=== PATIENT | female | born 1965 | race Caucasian/White ===

== ENCOUNTER → 2016-11-13 | Outpatient (CLI) | payer BC ==
--- NOTE | 2016-11-13 17:38 | US ---
EXAMINATION TYPE: US venous doppler duplex LE LT DATE OF EXAM: 11/13/2016 5:15 PM COMPARISON: NONE CLINICAL HISTORY: R60.0 Localized edema. Edema left foot, discoloration left toes SIDE PERFORMED: Left VESSELS IMAGED: External Iliac Vein (EIV) Common Femoral Vein Deep Femoral Vein Greater Saphenous Vein * Femoral Vein Popliteal Vein Small Saphenous Vein * Proximal Calf Veins (* superficial vessels) Left Leg: No evidence of DVT. Lymph nodes left groin measuring 1.5 x 0.8 x 1.7cm and 1.9 x 0.6 x 1.3 cm IMPRESSION: No evidence for DVT left lower extremity.
== END | disposition home or self-care (01) ==
LOC: RADUSMAIN 16:46
PROVIDERS: ATTEND Family Medicine
DX: R60.0 Localized edema (principal)

== ENCOUNTER → 2016-11-14 | Outpatient (CLI) | payer BC ==
--- NOTE | 2016-11-14 14:51 | P.ARTDOP ---
Arterial Doppler LOWER EXTREMITY ARTERIAL DOPPLER: DATE OF SERVICE: 11/14/2016 Reason for study: Color changes in the left foot and swelling. Doppler waveforms: Doppler waveforms are multiphasic throughout on the right down to the dorsalis pedis. On the left they are multiphasic to the dorsalis pedis but the dorsalis pedis is a bit blunted. Pulse volume recording: Digital plethysmography on the right is essentially normal. On the left the first and fifth toes are very minimally blunted. The second through the fourth toes however are fairly flat line. Pressure gradients: None essentially on the right. There is a mild gradient above the knee on the left. There is a mild gradient on the lower leg on the left. Ankle-brachial indices: 0.99 on the right and 0.69 on the left. Toe pressures: 81 on the right, not recorded on the left Impression: Essentially normal study on the right.. There is mild left SFA disease. There is probably some mild infrapopliteal disease. The flat line of the second through fourth digits on the left is of concern. I am told that the patient had an ice pack on her foot. This could possibly be related to vasospastic phenomenon. Embolic phenomenon is a consideration but is generally very painful. Trauma is a consideration. Clinical correlation recommended.
== END | disposition home or self-care (01) ==
LOC: RADUSWWP 13:34
PROVIDERS: ATTEND Family Medicine
DX: R60.0 Localized edema (principal)
CPT/HCPCS: 93923

== ENCOUNTER 2016-11-15 07:44 | Inpatient (IN) | payer BC ==
--- NOTE | 2016-11-15 08:39 | ED ---
Extremity Problem HPI - General Source: patient, RN notes reviewed Mode of arrival: ambulatory Limitations: no limitations <SanketTeresa dinero - Last Filed: 11/15/16 11:56> <Ever Alvares - Last Filed: 11/15/16 12:42> - General Chief complaint: Extremity Problem,Nontraumatic Stated complaint: Foot pain Time Seen by Provider: 11/15/16 08:10 - History of Present Illness Initial comments: Patient is a 51-year-old female presents to the emergency room for evaluation of left foot pain, discoloration and swelling. Patient states last month she was wearing boots that were little too large for her. Patient states that her toes were rubbing against her boot which started to irritate her toes. Patient states around October 26 she noticed pain and redness over her left pinky toe radiating up her foot. Patient states she went and saw her primary care provider and she is placed on Keflex. Patient states the redness and pain began to subside and came back a few days later even worse. Patient states all of her toes turn purple and she has redness on the top of her foot along with swelling. Patient states because of the swelling her toes feel numb. Patient states she was started on Augmentin yesterday. Patient states she had a venous Doppler study 2 days ago which was negative for DVT. Patient states she had an arterial Doppler done yesterday and got a phone call today saying that she has no blood flow from her second to fourth digits. Patient states she had a phone call from her primary care provider office and was advised to come to the emergency room since she cannot get an appointment with the vascular surgeon until 2 weeks from now. Patient does admit that she's been placing ice over her foot during most of the day to help get the swelling down. Patient states she does notice that her toes feel more numb when the ice on her foot. Patient states when she puts her foot in a warm bath she noticed that she has more feeling in her toes. Patient states that she had a blister on the outside of her great toe that she popped a few days ago. Patient states it has been healing and looks better than it has when she originally popped it. Patient does state she has a history of diabetes. Patient also admits to smoking daily. Patient denies fevers, chills, weakness, headache, dizziness, chest pain , shortness of breath. Patient denies any significant pain in her foot. (Teresa Coles) - Related Data Home Medications Medication Instructions Recorded Confirmed Amoxicillin/Potassium Clav 1 tab PO Q12HR 11/15/16 11/15/16 [Augmentin 875-125 Tablet] Cinnamon Bark [Cinnamon] 500 mg PO DAILY 11/15/16 11/15/16 Cyanocobalamin (Vitamin B-12) 1,000 mcg PO DAILY 11/15/16 11/15/16 [Vitamin B-12] Empagliflozin/Linagliptin 1 tab PO DAILY 11/15/16 11/15/16 [Glyxambi 25 mg-5 mg Tablet] Fish Oil/Dha/Epa [Fish Oil 1,200 1 cap PO DAILY 11/15/16 11/15/16 mg Fish Oil] Ibuprofen [Motrin] 800 mg PO Q8HR PRN 11/15/16 11/15/16 Pyridoxine [Vitamin B-6] 50 mg PO DAILY 11/15/16 11/15/16 Turmeric Root Extract [Turmeric] 500 mg PO DAILY 11/15/16 11/15/16 Allergies Allergy/AdvReac Type Severity Reaction Status Date / Time codeine AdvReac Nausea & Verified 11/15/16 08:55 Vomiting Review of Systems ROS Other: All systems not noted in ROS Statement are negative. <Teresa Coles - Last Filed: 11/15/16 11:56> ROS Other: All systems not noted in ROS Statement are negative. <Ever Alvares - Last Filed: 11/15/16 12:42> ROS Statement: Those systems with pertinent positive or pertinent negative responses have been documented in the HPI. Past Medical History Past Medical History: Diabetes Mellitus History of Any Multi-Drug Resistant Organisms: None Reported Past Surgical History: No Surgical Hx Reported Past Psychological History: Depression Smoking Status: Current every day smoker Past Alcohol Use History: None Reported Past Drug Use History: None Reported <Teresa Coles - Last Filed: 11/15/16 11:56> General Exam Limitations: no limitations General appearance: alert, in no apparent distress Head exam: Present: atraumatic, normocephalic, normal inspection ENT exam: Present: normal exam Neck exam: Present: normal inspection Respiratory exam: Present: normal lung sounds bilaterally. Absent: respiratory distress Cardiovascular Exam: Present: regular rate, normal rhythm, normal heart sounds Left Foot/Toe exam: Present: full ROM, swelling (Dorsal portion of the foot), erythema (Dorsal portion of the foot). Absent: normal inspection (Blue discoloration of first to fifth digits.), tenderness Neurovascular tendon exam: Absent: pulse deficit (Dorsal pedal and posterior tibial pulses found on Doppler) Back exam: Present: normal inspection Neurological exam: Present: alert, oriented X3 Psychiatric exam: Present: normal affect, normal mood Skin exam: Present: warm, dry <Teresa Coles - Last Filed: 11/15/16 11:56> General appearance: alert, in no apparent distress Head exam: Present: atraumatic, normocephalic, normal inspection Eye exam: Present: normal appearance, PERRL, EOMI. Absent: scleral icterus, conjunctival injection, periorbital swelling ENT exam: Present: normal exam, mucous membranes moist Neck exam: Present: normal inspection. Absent: tenderness, meningismus, lymphadenopathy Respiratory exam: Present: normal lung sounds bilaterally. Absent: respiratory distress, wheezes, rales, rhonchi, stridor Cardiovascular Exam: Present: regular rate, normal rhythm, normal heart sounds. Absent: systolic murmur, diastolic murmur, rubs, gallop, clicks GI/Abdominal exam: Present: soft, normal bowel sounds. Absent: distended, tenderness, guarding, rebound, rigid Extremities exam: Present: normal inspection, full ROM, normal capillary refill , other (Decreased pulse left lower extremity, purple distal tips of toes one through 5, also the left great toe). Absent: tenderness, pedal edema, joint swelling, calf tenderness Back exam: Present: normal inspection Neurological exam: Present: alert, oriented X3, CN II-XII intact Psychiatric exam: Present: normal affect, normal mood Skin exam: Present: warm, dry, intact, normal color. Absent: rash <Ever Alvares - Last Filed: 11/15/16 12:42> - General Exam Comments Initial Comments: Sitting in exam room in no acute distress. (Teresa Coles) Course <Teresa Coles - Last Filed: 11/15/16 11:56> <Ever Alvares - Last Filed: 11/15/16 12:42> Vital Signs 11/15/16 11/15/16 07:48 12:19 Temperature 98.2 F Pulse Rate 104 H 105 H Respiratory 18 16 Rate Blood Pressure 146/70 139/69 O2 Sat by Pulse 98 99 Oximetry - Reevaluation(s) Reevaluation #1: 11/15/16 12:41 Patient pain is much improved actually at this time. No signs of infection ( Ever Alvares) Medical Decision Making - Lab Data Result diagrams: 11/15/16 09:11 11/15/16 09:11 <Teresa Coles - Last Filed: 11/15/16 11:56> - Lab Data Result diagrams: 11/15/16 09:11 11/15/16 09:11 <Ever Alvares - Last Filed: 11/15/16 12:42> - Medical Decision Making 51 female here with left lower extremity arterial occlusion acute, likely embolic, patient will be admitted pending CT of lower extremity to vascular surgery. Patient started on heparin (Ever Alvares) - Lab Data Lab Results 11/15/16 11/15/16 11/15/16 Range/Units 09:11 09:11 09:11 WBC 16.4 H (3.8-10.6) k/uL RBC 5.94 H (3.80-5.40) m/uL Hgb 16.1 H (11.4-16.0) gm/dL Hct 47.8 H (34.0-46.0) % MCV 80.5 (80.0-100.0) fL MCH 27.2 (25.0-35.0) pg MCHC 33.8 (31.0-37.0) g/dL RDW 13.9 (11.5-15.5) % Plt Count 351 (150-450) k/uL Neutrophils % 83 % Lymphocytes % 11 % Monocytes % 4 % Eosinophils % 1 % Basophils % 0 % Neutrophils # 13.7 H (1.3-7.7) k/uL Lymphocytes # 1.7 (1.0-4.8) k/uL Monocytes # 0.7 (0-1.0) k/uL Eosinophils # 0.1 (0-0.7) k/uL Basophils # 0.0 (0-0.2) k/uL PT (9.0-12.0) sec INR (<1.1) APTT (22.0-30.0) sec Sodium 142 (137-145) mmol/L Potassium 5.1 (3.5-5.1) mmol/L Chloride 105 (98-107) mmol/L Carbon Dioxide 21 L (22-30) mmol/L Anion Gap 16 mmol/L BUN 17 (7-17) mg/dL Creatinine 0.52 (0.52-1.04) mg/dL Est GFR (MDRD) Af Amer >60 (>60 ml/min/1.73 sqM) Est GFR (MDRD) Non-Af >60 (>60 ml/min/1.73 sqM) Glucose 156 H (74-99) mg/dL Plasma Lactic Acid Domo 1.1 (0.7-2.0) mmol/L Calcium 9.8 (8.4-10.2) mg/dL Total Bilirubin 1.1 (0.2-1.3) mg/dL AST 38 H (14-36) U/L ALT 36 (9-52) U/L Alkaline Phosphatase 161 H (38-126) U/L Total Protein 8.1 (6.3-8.2) g/dL Albumin 4.3 (3.5-5.0) g/dL 11/15/16 Range/Units 09:11 WBC (3.8-10.6) k/uL RBC (3.80-5.40) m/uL Hgb (11.4-16.0) gm/dL Hct (34.0-46.0) % MCV (80.0-100.0) fL MCH (25.0-35.0) pg MCHC (31.0-37.0) g/dL RDW (11.5-15.5) % Plt Count (150-450) k/uL Neutrophils % % Lymphocytes % % Monocytes % % Eosinophils % % Basophils % % Neutrophils # (1.3-7.7) k/uL Lymphocytes # (1.0-4.8) k/uL Monocytes # (0-1.0) k/uL Eosinophils # (0-0.7) k/uL Basophils # (0-0.2) k/uL PT 10.2 (9.0-12.0) sec INR 1.0 (<1.1) APTT 23.1 (22.0-30.0) sec Sodium (137-145) mmol/L Potassium (3.5-5.1) mmol/L Chloride (98-107) mmol/L Carbon Dioxide (22-30) mmol/L Anion Gap mmol/L BUN (7-17) mg/dL Creatinine (0.52-1.04) mg/dL Est GFR (MDRD) Af Amer (>60 ml/min/1.73 sqM) Est GFR (MDRD) Non-Af (>60 ml/min/1.73 sqM) Glucose (74-99) mg/dL Plasma Lactic Acid Domo (0.7-2.0) mmol/L Calcium (8.4-10.2) mg/dL Total Bilirubin (0.2-1.3) mg/dL AST (14-36) U/L ALT (9-52) U/L Alkaline Phosphatase (38-126) U/L Total Protein (6.3-8.2) g/dL Albumin (3.5-5.0) g/dL Critical Care Time Critical Care Time: Yes Total Critical Care Time: 31 <Ever Alvares - Last Filed: 11/15/16 12:42> Disposition Decision Date: 11/15/16 <Teresa Coles - Last Filed: 11/15/16 11:56> <Ever Alvares - Last Filed: 11/15/16 12:42> Clinical Impression: Arterial occlusion, lower extremity Disposition: ADMITTED IP TO THIS [facility] Condition: Stable Referrals: Ting Borjas MD [Primary Care Provider] - 1-2 days
[2016-11-15 09:36] LABS: Basophils % (A) 0 %; CH 27.9; CHCM 34.8; Eosinophils # (A) 0.1 k/uL (0-0.7); Eosinophils % (A) 1 %; HCT 47.8 % (34.0-46.0); HDW 2.64; HGB 16.1 gm/dL (11.4-16.0); Luc # (Auto) 0.13; Luc % (Auto) 1; Lymphocytes # (A) 1.7 k/uL (1.0-4.8); Lymphocytes % (A) 11 %; MCH 27.2 pg (25.0-35.0); MCHC 33.8 g/dL (31.0-37.0); MCV 80.5 fL (80.0-100.0); Mean Platelet Volume 7.5; Monocytes # (A) 0.7 k/uL (0-1.0); Monocytes % (A) 4 %; Neutrophils # (A) 13.7 k/uL (1.3-7.7); Neutrophils % (A) 83 %; RBC 5.94 m/uL (3.80-5.40); RDW 13.9 % (11.5-15.5); WBC 16.4 k/uL (3.8-10.6); WBC (Perox) 17.64
[2016-11-15 09:37] LABS: Prothrombin Time 10.2 sec (9.0-12.0)
[2016-11-15 09:47] LABS: Anion Gap 16 mmol/L; Calcium 9.8 mg/dL (8.4-10.2); Carbon Dioxide 21 mmol/L (22-30); Chloride 105 mmol/L (98-107); Glucose 156 mg/dL (74-99); Non-African American GFR(MDRD) >60 (>60 ml/min/1.73 sqM); Sodium 142 mmol/L (137-145); Total Bilirubin 1.1 mg/dL (0.2-1.3)
[2016-11-15 09:49] LABS: Potassium 5.1 mmol/L (3.5-5.1); Total Protein 8.1 g/dL (6.3-8.2)
[2016-11-15 09:50] LABS: ALT 36 U/L (9-52); AST 38 U/L (14-36); Alkaline Phosphatase 161 U/L (38-126); Blood Urea Nitrogen 17 mg/dL (7-17)
[2016-11-15] MEDS ORDERED: HEPARIN SODIUM,PORCINE 5,000 UNIT/ML 1 ML VIAL IV ONE (09:56)
[2016-11-15] MEDS: HEPARIN SODIUM,PORCINE/D5W PMX 25,000 UNIT in DEXTROSE/WATER 1 500ML.BAG IV SCH (10:12)
[2016-11-15 10:49] LABS: Partial Thromboplastin Time 23.1 sec (22.0-30.0)
[2016-11-15] MEDS ORDERED: IBUPROFEN 800 MG TAB PO STA (11:50)
[2016-11-15] MEDS ORDERED: IBUPROFEN 800 MG TAB PO PRN (11:52)
[2016-11-15] MEDS ORDERED: NALOXONE 0.4 MG/ML 1 ML VIAL IV PRN (11:52)
[2016-11-15] MEDS ORDERED: SODIUM CHLORIDE 0.9% 1,000 ML IV SCH (12:00)
[2016-11-15] MEDS ORDERED: RX INFO: IV CONTRAST WAS GIVEN 1 EACH MISC MISCELLANE PRN (12:29)
--- NOTE | 2016-11-15 13:15 | P.CON ---
Consult Note - . Consult date: 11/15/16 Assessment/Plan:: impression; 1. moderate left femoropopliteal arterial occlusive disease with embolic phenomenon to left forefoot with threatened toes 2. diabetes mellitus poorly controlled 3. nicotine dependence plan; 1. agree with heparin drip for now 2. CTA of aorta with runoff to delineate inflow to left foot; patient will require intervention for tissue salvage 3. further recommendations after CTA aorta 4. cardiac risk factor stratification 51 y/o woman in usual state of health until 11/10/2016 when she noticed that her toes became blue and she had pain in her foot when walking. She noticed that in spite of home remedies her foot did not improve and it became increasingly painful. She developed a blister on her left great toe that ruptured. NO history of fevers, chills, drainage from foot. She denies a history of cardiac arrythmias or thromboembolic events in the past. No history of hypercoagulable state. She has a 10 year history of diabetes mellitus that is poorly controlled. Her HgA1C runs around 9. She smokes at least 3/4 to 1 ppd and has done so for the past 30 years. She has a family history of collagen vascular disease; her grandmother had lupus and her mother has symptoms suggestive of scleroderma. Underwent venous duplex and arterial studies as an outpatient; no flow noted in left 2nd, third, and 4th toes; here for further evaluation and management. CMHx; DM, nicotine dependence, PSHx; D&C Habits; 30 pack year history of smoking currently smoking 3/4 to 1ppd, no EtOH or drugs; works as a caregiver FHx; as noted above PE: 139/69 AR = 112 O2 sat = 99% HEENT; no bruits, no JVD, trachea midline, no thyromegaly or lymphadenopathy Lungs; clear bilaterally Heart; RRR, normal S1 and S2 ABD; soft, non-tender, no palpable pulsatile organomegaly or bruits EXTR; femoral pulses are palpable bilaterally; right popliteal, dorsalis pedis, and posterior tibial pulses are palpable; left popliteal and pedal pulses are not palpable; left dorsalis pedis and posterior tibial pulses are dopplerable; cyanosis of left forefoot involving great, second, third, fourth, fifth toes; capillary refill is 5 seconds; there is erythema of the dorsum of the left forefoot and edema of the left forefoot to the level of the plantar arch Arterial doppler studies from 11/14/2016 demonstrates normal arterial inflow to the right leg. The left leg demonstrates moderate femoropopliteal arterial occlusive disease with an CHAPITO of 0.69. Biphasic waveforms are noted in the superficial femoral, popliteal and tibial vessels. PPG demonstrate normal flow to the toes of the right foot; the left foot demonstrates pulsatile flow to the great toe and fifth toe with flat-line flow to the second, third and fourth toes. impression/plan as noted above following with you
--- NOTE | 2016-11-15 14:11 | CT ---
EXAMINATION TYPE: CT angio abd aorta wo/w con DATE OF EXAM: 11/15/2016 1:21 PM COMPARISON: NONE HISTORY: 51-year-old female with left lower limb redness, discoloring, and swelling. Ischemic left f orefoot from embolus. Left SFA abnormal on exam. No popliteal or pedal pulse. TECHNIQUE: Contiguous axial scanning of the abdomen and pelvis with bilateral lower extremity runoff performed with IV Contrast, patient injected with 125 mL of Omnipaque 350. Coronal/sagittal MIP recon structions performed. 3-D reconstructions generated on a dedicated independent workstation. CT DLP: 683.0 mGycm Automated exposure control for dose reduction was used. FINDINGS: The heart is normal size without pericardial effusion. Strandy atelectasis at the lower lungs without pleural effusion. Liver is enlarged measuring 21 cm craniocaudal with diffuse low-attenuation. No biliary ductal dilata tion. Gallbladder with phrygian cap, adrenal glands, and kidneys appear within normal limits. There is mild splenomegaly at 14.1 cm. Pancreas appears within normal limits. There is no evidence for AAA. Visceral artery origins are patent. There are mild apical scarring calc ifications of the distal abdominal aorta. Moderate atherosclerotic plaque and calcification causes se gmental mild narrowing of the left common iliac artery. The vessel is small measuring only 6 mm. On the right, there is mild atherosclerotic change involving the common femoral artery. Otherwise, th e right lower extremity arterial vasculature is patent with satisfactory runoff. On the left, the common femoral arteries patent. The superficial femoral artery demonstrates a severe stenosis at the level of the abductor hiatus. Th e normal SFA is small at 4 mm. There is an eccentric calcification and prominent soft plaque at the s ite of severe stenosis, axial image 234 and coronal image 28. There is otherwise three-vessel runoff to the foot. Diffuse soft tissue swelling is noted of the left midfoot and forefoot and some left femoral canal an d left external iliac chain lymph nodes which are asymmetrically larger measuring up to 9 mm probably reactive. No dilated small bowel, free fluid, or free air. No mesenteric or retroperitoneal lymphadenopathy. Sc attered moderate stool throughout the colon without pericolonic inflammatory change. Bladder is urine distended. Uterus and ovaries are visualized. No abnormal fluid collection in the pe lvis. Bones: Degenerative changes lower lumbar spine. No osseous destructive process. IMPRESSION: 1. MILD ATHEROSCLEROTIC STENOSIS OF THE LEFT COMMON ILIAC ARTERY. THE [place] VESSEL IS RELATIVELY SMA LL AT 6 MM. 2. SEVERE FOCAL STENOSIS LOWER LEFT SFA AT THE LEVEL OF THE ADDUCTOR HIATUS SECONDARY TO PROMINENT SO FT PLAQUE. THE [place] VESSEL IS SMALL AT 4 MM. 3. HEPATOMEGALY AND HEPATIC STEATOSIS. 4. MILD SPLENOMEGALY (14.1 CM). 5. DIFFUSE SOFT TISSUE SWELLING OF THE LEFT MIDFOOT AND FOREFOOT LIKELY SECONDARY TO THE PATIENT'S AC OUZINKIE ISCHEMIC PRESENTATION. 6. ASYMMETRICALLY LARGER LEFT EXTERNAL ILIAC AND FEMORAL CANAL LYMPH NODES MEASURING UP TO 9 MM LIKEL Y REACTIVE.
[2016-11-15] MEDS ORDERED: MORPHINE SULFATE 4 MG/ML SYRINGE IVP PRN (14:27)
[2016-11-15] MEDS: FAMOTIDINE 20 MG TAB PO SCH (15:08)
[2016-11-15] MEDS ORDERED: ASPIRIN 81 MG CHEW PO STA (15:13)
[2016-11-15] MEDS: ONDANSETRON 4 MG/2 ML VIAL IVP PRN ×2 (16:38→21:46)
[2016-11-15] MEDS: INSULIN LISPRO (humaLOG) 300 UNIT/3 ML VIAL SQ SCH ×2 (16:44→20:56)
[2016-11-15 16:51] LABS: Glucose,Whole Blood 108 mg/dL (75-99)
--- NOTE | 2016-11-15 17:00 | P.PN ---
Progress Note - Text CTA of aorta with runoff reviewed; demonstrates area of 30-40% stenosis of the proximal left common iliac artery just distal to the aortic bifurcation. There is an area of high grade stenosis at the adductor canal with a significant amount of soft thrombus noted at this level. Superficial femoral artery is 4.8mm in maximal diameter. The popliteal artery and trifurcation are patent and there is 2 vessel runoff to the foot via the anterior tibial and posterior tibial arteries. Patient will require open superficial femoral endarterectomy with vein patch secondary to significant amount of soft thrombus noted in the superficial femoral artery. Manipulation without an embolic protection device would incur an increased risk of further embolization. Covered stent placement of an artery this size in this location has an increased risk of thrombosis secondary to the small caliber vessels present. Risks and benefits of the procedure (superficial femoral endarterectomy with patch and related procedures) was discussed with the patient including cardiac and pulmonary complications, infection, bleeding, wound healing complications, loss of toes and foot in spite of all efforts at limb salvage, re-stenosis and need for re-intervention, cardiac and pulmonary complications. Patient understands rationale for the proposed procedure and is willing to have procedure performed. She is scheduled for 11/16/2016.
[2016-11-15] MEDS: HEPARIN SODIUM,PORCINE 5,000 UNIT/ML 1 ML VIAL IV PRN (17:27)
--- NOTE | 2016-11-15 18:10 | XR ---
EXAMINATION TYPE: XR chest 2V DATE OF EXAM: 11/15/2016 5:45 PM COMPARISON: NONE HISTORY: Preop evaluation. TECHNIQUE: Frontal and lateral views of the chest are obtained. FINDINGS: Innumerable nodular foci are seen throughout the entirety of the lungs, likely relating to miliary pulmonary nodules. No focal consolidation, pleural effusion, or pneumothorax is seen. Cardio mediastinal silhouette is within normal limits of size. Osseous structures are intact. IMPRESSION: Innumerable nodular foci throughout the entirety of the lungs, likely representing milia ry pulmonary nodules. Enhanced CT thorax is recommended on a nonemergent basis for further evaluation .
[2016-11-15 19:06] LABS: Appearance,Urine Clear (Clear); Bilirubin,Urine Negative (Negative); Glucose,Urine (UA) 4+ (Negative); Leukocyte Esterase,Urine Negative (Negative); Nitrite,Urine Negative (Negative); Protein,Urine Negative (Negative); Specific Gravity,Urine 1.025 (1.001-1.035); UA Billing (MACRO vs. MICRO) CHEM; Urobilinogen,Urine <2.0 mg/dL (<2.0)
--- NOTE | 2016-11-15 19:35 | HP ---
DATE OF ADMISSION: Patient is a 51-year-old female with a history of extensive smoking history and history of diabetes mellitus, came into the hospital with discoloration of all five toes in the left leg extending up to the metatarsal area with an ulcer on the lateral aspect of the left great toe. Patient was complaining of severe pain in the foot about 6/10, sharp in nature, along with occasional numbness and tingling. Patient was given Keflex for her ulcer and they did arterial Doppler of the lower extremity, which showed significant occlusion of the second and third toes. That discoloration was not present until today morning which has worsened today morning. Vascular Surgery was consulted and already evaluated the patient. The patient did get a CT angio of the left lower limb, which shows some atherosclerotic vascular disease extending from the left iliac artery with significant atherosclerotic vascular disease in the left femoral and common femoral. The patient may have an embolic phenomenon, although patient's dorsalis pedis pulses with Doppler are present and 1+. Patient has significant swelling in the left lower limb. Patient was subsequently admitted for urgent vascular intervention and vascular surgery. Patient is admitted to the stepdown unit. REVIEW OF SYSTEMS: CONSTITUTIONAL: No fever, no malaise, no fatigue. HEENT: No recent visual problems or hearing problems. Denied any sore throat. CARDIOVASCULAR: No chest pain, orthopnea, PND, no palpitations, no syncope. PULMONARY: No shortness of breath, no cough, no hemoptysis. GASTROINTESTINAL: No diarrhea, no nausea, no vomiting, no abdominal pain. Normoactive bowel sounds. NEUROLOGICAL: No headaches, no weakness, no numbness. HEMATOLOGICAL: Denies any bleeding or petechiae. GENITOURINARY: Denies any burning micturition, frequency, or urgency. MUSCULOSKELETAL/RHEUMATOLOGICAL: Left foot as mentioned above. ENDOCRINE: Denies any polyuria or polydipsia. The rest of the 14 point review of systems is negative. Home medications include Augmentin, cinnamon, and cyanocobalamin. Glyxambi, which is a combination of linagliptin and empagliflozin. Fish oil, ibuprofen, pyridoxine, tumeric. ALLERGIES: CODEINE. PAST MEDICAL HISTORY: Significant for diabetes mellitus, depression. The patient does smoke about a pack per day. Denied any alcohol abuse or any drug use. Social History: as mentioned in HPI. FAMILY HISTORY: Significant for diabetes mellitus in the family. PHYSICAL EXAMINATION: VITAL SIGNS: Temperature 98.2, pulse of 105, respiratory rate 16, blood pressure 139/69, saturating 99% on room air. GENERAL: The patient is alert and oriented x3, not in any acute distress. Well developed, well nourished. HEENT: Pupils are round and equally reacting to light. EOMI. No scleral icterus. No conjunctival pallor. Normocephalic, atraumatic. No pharyngeal erythema. No thyromegaly. CARDIOVASCULAR: S1 and S2 present. No murmurs, rubs, or gallops. PULMONARY: Chest is clear to auscultation, no wheezing or crackles. ABDOMEN: Soft, nontender, nondistended, normoactive bowel sounds. No palpable organomegaly. MUSCULOSKELETAL: No joint swelling or deformity. EXTREMITIES: Left lower extremities; patient has discoloration ( ) metatarsal area of the left foot along with ( ). Patient has decreased pulses in the left lower extremity although ( ) Doppler. ( ) mentioned above. NEUROLOGICAL: Gross neurological examination did not reveal any focal deficits. SKIN: No rashes. ASSESSMENT AND PLAN: 1. ( ) Vascular surgery was consulted. They have already evaluated her. ( ) patient. Further management of surgical intervention, which may be urgent as per Vascular Surgery observation. 2. Type 2 diabetes mellitus. The patient ( ) hold on oral hypoglycemic agents. 3. Nicotine abuse. Extensive counseling was provided. 4. Patient may urgent ( ) and surgery because of which medical clearance is ( ) because of her ( ) issue because ( ) lately and if she needs toe surgery she should go for surgery without awaiting medical clearance. 5. Tachycardia. 6. Patient does have leukocytosis which appears to be reactive. My suspicion is low for any infectious process. Patient mostly has ischemic toes on the left side. 7. Severe peripheral vascular disease with severe ischemia of all the five toes of the left foot. MTDD
[2016-11-15 19:58] LABS: Ketones,Urine 2+ (Negative)
[2016-11-15] MEDS: SODIUM CHLORIDE 0.9% 1,000 ML IV SCH (20:12)
[2016-11-15 20:21] LABS: Glucose,Whole Blood 145 mg/dL (75-99)
[2016-11-15] MEDS: oxyCODONE-APAP 7.5-325MG 1 EACH TAB PO PRN (23:48)
[2016-11-16] MEDS: oxyCODONE-APAP 7.5-325MG 1 EACH TAB PO PRN (04:48)
[2016-11-16] MEDS: SODIUM CHLORIDE 0.9% 1,000 ML IV SCH ×3 (06:01→21:02)
[2016-11-16] MEDS: ASPIRIN 81 MG CHEW PO SCH (06:02)
[2016-11-16] MEDS: FAMOTIDINE 20 MG TAB PO SCH (06:02)
[2016-11-16] MEDS: NICOTINE 21MG/24HR PATCH TRANSDERM SCH (06:05)
[2016-11-16 06:14] LABS: Basophils # (A) 0.1 k/uL (0-0.2); Basophils % (A) 0 %; CH 27.5; CHCM 33.6; Eosinophils # (A) 0.1 k/uL (0-0.7); Eosinophils % (A) 1 %; HCT 41.4 % (34.0-46.0); HDW 2.61; HGB 13.5 gm/dL (11.4-16.0); Luc # (Auto) 0.24; Luc % (Auto) 2; Lymphocytes # (A) 2.6 k/uL (1.0-4.8); Lymphocytes % (A) 22 %; MCH 26.9 pg (25.0-35.0); MCHC 32.7 g/dL (31.0-37.0); MCV 82.3 fL (80.0-100.0); Mean Platelet Volume 7.2; Monocytes # (A) 0.7 k/uL (0-1.0); Monocytes % (A) 6 %; Neutrophils # (A) 8.3 k/uL (1.3-7.7); Neutrophils % (A) 69 %; RBC 5.03 m/uL (3.80-5.40); RDW 13.7 % (11.5-15.5); WBC (Perox) 12.06
[2016-11-16 06:16] LABS: Glucose,Whole Blood 117 mg/dL (75-99)
[2016-11-16] MEDS: INSULIN LISPRO (humaLOG) 300 UNIT/3 ML VIAL SQ SCH ×4 (06:16→21:01)
[2016-11-16 06:36] LABS: Anion Gap 12 mmol/L; Blood Urea Nitrogen 14 mg/dL (7-17); Calcium 8.6 mg/dL (8.4-10.2); Carbon Dioxide 19 mmol/L (22-30); Chloride 109 mmol/L (98-107); Glucose 126 mg/dL (74-99); Non-African American GFR(MDRD) >60 (>60 ml/min/1.73 sqM); Potassium 4.4 mmol/L (3.5-5.1); Sodium 140 mmol/L (137-145)
[2016-11-16] MEDS: HEPARIN SODIUM,PORCINE 5,000 UNIT/ML 1 ML VIAL IV PRN (08:26)
[2016-11-16] MEDS: ONDANSETRON 4 MG/2 ML VIAL IVP PRN (08:29)
[2016-11-16] MEDS ORDERED: VANCOMYCIN 1,000 MG in SODIUM CHLORIDE 0.9% 250 ML IVPB ONE (11:00)
[2016-11-16] MEDS: HYDROmorphone 1 MG/ML 1 ML SYRINGE IVP PRN ×2 (11:09→22:12)
[2016-11-16 11:31] LABS: Glucose,Whole Blood 118 mg/dL (75-99)
[2016-11-16] MEDS: HEPARIN SODIUM,PORCINE/D5W PMX 25,000 UNIT in DEXTROSE/WATER 1 500ML.BAG IV SCH (12:18)
[2016-11-16] MEDS ORDERED: FAMOTIDINE 20 MG/2 ML VIAL IV ONE (12:40)
[2016-11-16] MEDS ORDERED: ONDANSETRON 4 MG/2 ML VIAL IVP ONE (12:42)
[2016-11-16] MEDS ORDERED: DEXAMETHASONE SOD PHOSPHATE 10 MG/ML 1 ML VIAL IV ONE (12:46)
[2016-11-16] MEDS ORDERED: SCOPOLAMINE 1.5MG/72HR PATCH TRANSDERM ONE (12:46)
[2016-11-16] MEDS ORDERED: METOCLOPRAMIDE 5 MG/ML 2 ML VIAL IVP ONE (13:29)
[2016-11-16] MEDS ORDERED: IV FLUID CONTINUATION 1,000 ML IV ONE (13:44)
[2016-11-16] MEDS ORDERED: LACTATED RINGERS 1,000 ML IV ONE ×3 (13:45→15:15)
[2016-11-16] MEDS ORDERED: ROCURONIUM BROMIDE 10 MG/ML 10 ML VIAL IV ONE (13:48)
[2016-11-16] MEDS ORDERED: NEOSTIGMINE 1 MG/ML 10 ML VIAL ONE (13:48)
[2016-11-16] MEDS ORDERED: GLYCOPYRROLATE 0.2 MG/ML 2 ML VIAL ONE (13:48)
[2016-11-16] MEDS ORDERED: HEPARIN SODIUM,PORCINE 5,000 UNIT/ML 1 ML VIAL ONE (13:48)
[2016-11-16] MEDS ORDERED: MIDAZOLAM 2 MG/2 ML VIAL ONE (13:48)
[2016-11-16] MEDS ORDERED: fentaNYL (PF) 50 MCG/ML 2 ML AMP ONE (13:48)
[2016-11-16] MEDS ORDERED: ePHEDrine 50 MG/ML 1 ML AMP ONE (13:48)
[2016-11-16] MEDS ORDERED: SUCCINYLCHOLINE CHLORIDE 100 MG/5 ML SYR IV ONE (13:48)
[2016-11-16] MEDS ORDERED: HEPARIN SODIUM 1,000 UNIT/ML VIAL ONE (13:48)
[2016-11-16] MEDS ORDERED: PHENYLEPHRINE-0.9% NACL SYG 1 MG/10 ML SYRINGE ONE (13:48)
[2016-11-16] MEDS ORDERED: LIDOCAINE 1% INJ 10MG/ML (20 ML MDV) ONE (13:48)
[2016-11-16] MEDS ORDERED: PROPOFOL 10 MG/ML 20 ML VIAL IV ONE (13:48)
[2016-11-16] MEDS ORDERED: IOHEXOL 350 MG/ML 50ML BOTTLE IRRIGATION ONE (14:54)
[2016-11-16] MEDS ORDERED: GELATIN SPONGE,ABSORB (LARGE) 1 EACH SPONGE TOPICAL ONE (14:55)
[2016-11-16] MEDS ORDERED: THROMBIN (BOVINE) 5,000 UNIT VIAL TOPICAL ONE (14:55)
[2016-11-16] MEDS ORDERED: ceFAZolin 1,000 MG in SODIUM CHLORIDE 0.9% 1,000 ML IRRIGATION ONE (14:57)
[2016-11-16] MEDS ORDERED: SODIUM CHLORIDE 0.9% 500 ML with HEPARIN SODIUM,PORCINE 5,000 UNIT IV ONE ×2 (14:59)
[2016-11-16] MEDS ORDERED: PAPAVERINE 30 MG/ML 2 ML VIAL IV ONE (16:00)
[2016-11-16] MEDS ORDERED: HEPARIN SODIUM,PORCINE/D5W PMX 25,000 UNIT in DEXTROSE/WATER 1 500ML.BAG IV ONE (17:15)
[2016-11-16 17:18] LABS: Glucose,Whole Blood 148 mg/dL (75-99)
[2016-11-16] MEDS ORDERED: HYDROmorphone 1 MG/ML 1 ML SYRINGE IVP ONE (17:20)
[2016-11-16 17:23] LABS: Basophils # (A) 0.1 k/uL (0-0.2); Basophils % (A) 0 %; CH 28.2; CHCM 34.5; Eosinophils % (A) 0 %; HCT 41.4 % (34.0-46.0); HGB 13.9 gm/dL (11.4-16.0); Luc # (Auto) 0.12; Luc % (Auto) 1; Lymphocytes # (A) 1.3 k/uL (1.0-4.8); Lymphocytes % (A) 9 %; MCH 27.6 pg (25.0-35.0); MCHC 33.6 g/dL (31.0-37.0); MCV 82.2 fL (80.0-100.0); Mean Platelet Volume 8.2; Monocytes # (A) 0.2 k/uL (0-1.0); Monocytes % (A) 2 %; Neutrophils # (A) 12.4 k/uL (1.3-7.7); Neutrophils % (A) 88 %; RBC 5.04 m/uL (3.80-5.40); RDW 13.9 % (11.5-15.5); WBC 14.2 k/uL (3.8-10.6)
[2016-11-16] MEDS: HYDROmorphone 1 MG/ML 1 ML SYRINGE IVP ONE ×2 (17:25→17:31)
--- NOTE | 2016-11-16 17:37 | P.OP ---
Date of Procedure: 11/16/16 Preoperative Diagnosis: high grade left SFA stenosis with suspected distal embolization to foot Postoperative Diagnosis: High grade left superficial femoral artery stenosis with no evidence of hemorrhagic plaque Procedure(s) Performed: left superficial femoral endarterectomy with bovine patch angioplasty, completion arteriogram Anesthesia: CASPER Surgeon: Hilary Cunningham Federal Agent #1: Gualberto Croninin Estimated Blood Loss (ml): 100 IV fluids (ml): 1,800 Urine output (ml): 500 Condition: stable Disposition: ICU Indications for Procedure: ischemia left forefoot with suspected embolization to toes Operative Findings: high grade stenosis of the left superficial femoral artery with no evidence of friable plaque Description of Procedure: *After induction of adequate general anesthesia via endotracheal tube the left leg and groin were prepped and draped in the usual sterile fashion. An incision was made over the distal left superficial femoral artery in the distal thigh, medially. The incision was carried through the skin, subcutaneous tissues, through the fat to the neurovascular bundle containing the superficial femoral artery. The superficial femoral artery was identified and isolated from the adductor hiatus to the popliteal space. It was noted to have significant calcification throughout its course. A 21-gauge needle was then placed into the superficial femoral artery proximally and an on table arteriogram was performed. This demonstrated an area of high-grade stenosis in the distal segment of the superficial femoral artery just above the joint space. The patient was given 8000 units of heparin IV and ACT was maintained between 250 and 300 throughout the case. The artery was controlled with vascular clamps and a longitudinal arteriotomy was performed. A significant amount of calcified plaque was noted with a area of high-grade stenosis in the distal superficial femoral artery. Endarterectomy of the plaque was performed. The plaque was submitted as a specimen. The distal endpoint was examined and 2 7-0 Prolene sutures were used to tack it. A 3 mm probe easily passed through the distal superficial and proximal popliteal arteries. Good backbleeding was noted. A bovine patch angioplasty was then performed with a 6-0 Prolene running. Prior to completion, a 3 mm probe was passed through the proximal and distal ends of the patch without difficulty. There was good prograde and retrograde flow through the superficial femoral artery. The anastomosis was copiously irrigated with heparinized saline solution and completed. Flow was released distally. An on table arteriogram was performed. This demonstrated a widely patent patch angioplasty site with flow into the patent popliteal artery and two-vessel runoff to the left foot via the anterior tibial and posterior tibial arteries. Flow was noted into the foot with reconstitution of the lateral and medial plantar arteries. The incision was then copiously irrigated with saline solution. Hemostasis was assured with thrombin, Gelfoam, electrocautery, and FloSeal. The incision was closed in layers with a 3-0 PDS used to approximate the deep tissues. 4-0 nylon to skin. Sterile dressings. Needle and sponge counts were correct. Patient was returned to the recovery room in satisfactory condition. Palpable posterior tibial and dorsalis pedis pulses were noted. The left foot was viable.
[2016-11-16 18:29] LABS: Anion Gap 16 mmol/L; Blood Urea Nitrogen 15 mg/dL (7-17); Calcium 8.5 mg/dL (8.4-10.2); Carbon Dioxide 18 mmol/L (22-30); Chloride 109 mmol/L (98-107); Glucose 153 mg/dL (74-99); Magnesium 1.9 mg/dL (1.6-2.3); Non-African American GFR(MDRD) >60 (>60 ml/min/1.73 sqM); Potassium 4.5 mmol/L (3.5-5.1); Sodium 143 mmol/L (137-145)
[2016-11-16 18:46] LABS: Glucose,Whole Blood 148 mg/dL (75-99)
[2016-11-16] MEDS ORDERED: METOCLOPRAMIDE 5 MG/ML 2 ML VIAL IVP PRN (19:06)
[2016-11-16 20:37] LABS: Anion Gap 13 mmol/L; Blood Urea Nitrogen 15 mg/dL (7-17); Calcium 8.4 mg/dL (8.4-10.2); Carbon Dioxide 18 mmol/L (22-30); Chloride 110 mmol/L (98-107); Glucose 131 mg/dL (74-99); Non-African American GFR(MDRD) >60 (>60 ml/min/1.73 sqM); Potassium 5.2 mmol/L (3.5-5.1); Sodium 141 mmol/L (137-145)
[2016-11-16] MEDS: METOCLOPRAMIDE 5 MG/ML 2 ML VIAL IVP SCH (20:47)
[2016-11-16] MEDS: ATORVASTATIN 20 MG TAB PO SCH (20:48)
[2016-11-16 20:58] LABS: Glucose,Whole Blood 124 mg/dL (75-99)
[2016-11-17] MEDS: METOCLOPRAMIDE 5 MG/ML 2 ML VIAL IVP SCH ×3 (01:52→13:01)
[2016-11-17 04:37] LABS: Basophils % (A) 0 %; CH 28.4; CHCM 34.6; Eosinophils % (A) 0 %; HCT 37.7 % (34.0-46.0); HDW 2.65; HGB 12.7 gm/dL (11.4-16.0); Luc # (Auto) 0.25; Luc % (Auto) 2; Lymphocytes # (A) 2.2 k/uL (1.0-4.8); Lymphocytes % (A) 17 %; MCH 27.7 pg (25.0-35.0); MCHC 33.6 g/dL (31.0-37.0); MCV 82.5 fL (80.0-100.0); Mean Platelet Volume 8.3; Monocytes # (A) 0.6 k/uL (0-1.0); Monocytes % (A) 5 %; Neutrophils # (A) 9.8 k/uL (1.3-7.7); Neutrophils % (A) 76 %; RBC 4.57 m/uL (3.80-5.40); RDW 13.9 % (11.5-15.5)
[2016-11-17 04:48] LABS: ALT 30 U/L (9-52); AST 15 U/L (14-36); Alkaline Phosphatase 100 U/L (38-126); Anion Gap 11 mmol/L; Blood Urea Nitrogen 13 mg/dL (7-17); Calcium 8.3 mg/dL (8.4-10.2); Carbon Dioxide 20 mmol/L (22-30); Chloride 108 mmol/L (98-107); Glucose 90 mg/dL (74-99); Magnesium 1.7 mg/dL (1.6-2.3); Non-African American GFR(MDRD) >60 (>60 ml/min/1.73 sqM); Phosphorous 3.7 mg/dL (2.5-4.5); Potassium 4.2 mmol/L (3.5-5.1); Sodium 139 mmol/L (137-145); Total Bilirubin 0.6 mg/dL (0.2-1.3); Total Protein 5.8 g/dL (6.3-8.2)
[2016-11-17] MEDS: HYDROmorphone 2 MG TAB PO PRN (05:57)
--- NOTE | 2016-11-17 06:39 | FL ---
EXAMINATION TYPE: FL venogram extremity LT DATE OF EXAM: 11/16/2016 5:53 PM CLINICAL HISTORY: Peripheral arterial disease TECHNIQUE: Fluoroscopy. COMPARISON: None. FINDINGS: Fluoroscopic guidance was provided during venogram procedure performed by vascular surgeon . A total of 1 minute 56 seconds of fluoroscopic time was utilized during the procedure and several spot images are acquired. Images acquired show access at popliteal region with runoff of the lower ex tremity. IMPRESSION: As Above.
[2016-11-17] MEDS ORDERED: Magnesium Replacement Protocol 1 EACH MISC MISCELLANE PRN (06:43)
--- NOTE | 2016-11-17 07:10 | XR ---
EXAMINATION TYPE: XR chest 1V DATE OF EXAM: 11/17/2016 6:36 AM CLINICAL HISTORY: Difficulty breathing progress study. Occasional cough, possible TB TECHNIQUE: Single AP portable upright view of the chest is obtained. COMPARISON: Chest x-ray from one day earlier FINDINGS: Reticulonodular opacities bilaterally are redemonstrated. There is no new focal airspace o pacity, pleural effusion, or pneumothorax seen. Cardiac silhouette size is stable and within normal l imits. Osseous structures are intact IMPRESSION: Overall stable findings, bilateral diffuse reticulonodular infiltrates redemonstrated. N o new infiltrates are identified.
[2016-11-17] MEDS: MAGNESIUM SULFATE-D5W PMX 1 GM in DEXTROSE/WATER 1 100ML.BAG IVPB SCH ×2 (07:51→09:14)
[2016-11-17] MEDS: INSULIN LISPRO (humaLOG) 300 UNIT/3 ML VIAL SQ SCH ×4 (07:59→20:40)
[2016-11-17 08:01] LABS: Glucose,Whole Blood 91 mg/dL (75-99)
[2016-11-17] MEDS: SODIUM CHLORIDE 0.9% 1,000 ML IV SCH ×3 (09:15→20:41)
[2016-11-17] MEDS: FAMOTIDINE 20 MG TAB PO SCH (09:15)
[2016-11-17] MEDS: ASPIRIN 81 MG CHEW PO SCH (09:15)
[2016-11-17] MEDS: NICOTINE 21MG/24HR PATCH TRANSDERM SCH (09:15)
[2016-11-17] MEDS ORDERED: RX INFO: IV CONTRAST WAS GIVEN 1 EACH MISC MISCELLANE PRN (09:26)
--- NOTE | 2016-11-17 10:05 | P.PN ---
Progress Note - Text no adverse events overnight patient's nausea is improved tolerated clear liquid diet this am AF BP = 101/59 lungs; clear bilaterally Left leg; incision site is intact; dressing remains dry; no evidence of hematoma ; palpable posterior tibial pulse; bi to triphasic signals in dorsalis pedis and posterior tibial areas; areas of gangrene and severe ischemia are stable; moderate left foot edema persists; FROM, sensation intact Labs; reviewed impression/plan 1. Sammie Stage ischemia; gangrenous changes of left forefoot Intraoperative findings are not consistent with degree of ischemia found in foot ; high grade calcific plaque noted in superficial femoral artery with no soft thrombus or plaque noted; no evidence of Beurger's disease, the degree of ischemia far outweighs the degree of occlusive disease found; furthermore CTA of the aorta with runoff fails to demonstrate further areas of thombotic/soft plaque in the abdominal aorta, iliac arteries; proximal femoral arteries and infrapopliteal segments in the left leg; highly doubt this is embolic from cardiac source; these tend to involve major branch points in the vessels and not small vessel occlusive disease as clinically demonstrated in the foot Continue heparin low dose protocol until further studies are completed; re; hypercoagulable state Patient is not a candidate for NOAC at present time since this medication is not readily reversible if she should require urgent/emergent operative re- intervention OK to transfer to stepdown unit from vascular perspective OOB to chair with left leg elevated non-weight bearing on left foot 2. reticulonodular pattern on CXR as discussed with hem/onc; will obtain CT chest with contrast pulmonary medicine evaluation pending continue isolation precautions until further notice 3. diabetes/nicotine dependence/suspected hypercoagulable state vs. autoimmune disorder continue ASA/statin for plaque stabilization further management as per internal medicine service
[2016-11-17] MEDS: HEPARIN SODIUM,PORCINE/D5W PMX 25,000 UNIT in DEXTROSE/WATER 1 500ML.BAG IV SCH (10:38)
[2016-11-17 12:53] LABS: Glucose,Whole Blood 123 mg/dL (75-99)
--- NOTE | 2016-11-17 15:07 | CT ---
EXAMINATION TYPE: CT chest w con DATE OF EXAM: 11/17/2016 1:52 PM COMPARISON: Chest x-ray same date HISTORY: Reticulonodular pattern on CXR CT DLP: 229.7 mGycm Automated exposure control for dose reduction was used. CONTRAST: CT scan of the chest is performed with IV Contrast, patient injected with 100 ml mL of Omnipaque 300. FINDINGS: LUNGS: Extensive subcentimeter round soft tissue nodules are present some of which are calcified thro ughout both lungs. There are small bilateral pleural effusions present. Oval soft tissue density in t he left costophrenic angle is indeterminate and shows questionable associated air bronchograms and me asures 19 mm. Interstitium is increased. The pulmonary artery is prominent at approximately 2.9 cm. A cody is not aneurysmal, there is no dissection. No pericardial effusion. MEDIASTINUM: There are no greater than 1 cm hilar or mediastinal lymph nodes. No pericardial effusi on is seen. AORTA: No additional significant abnormality is seen. OTHER: The spleen is enlarged. The liver shows low attenuation likely due to fatty infiltration. IMPRESSION: Splenomegaly. Fatty infiltration of the liver. Probable granulomatous disease. Small amador ateral pleural effusions. Correlate to exclude pulmonary venous hypertension and interstitial edema. Oval density may be postinflammatory left costophrenic angle. Follow-up is suggested.
[2016-11-17] MEDS: HYDROmorphone 1 MG/ML 1 ML SYRINGE IVP PRN ×2 (15:58→20:42)
[2016-11-17 16:51] LABS: Glucose,Whole Blood 148 mg/dL (75-99)
--- NOTE | 2016-11-17 18:23 | PN ---
Patient is a 51-year-old female who came in with left foot dry gangrene and ischemia of all five toes. Patient was evaluated by Vascular Surgery and underwent endarterectomy of the left lower limb vasculature. No significant atherosclerotic that can explain the toe ischemia. Because of which we are considering alternate diagnosis. The other possibilities include the followin. Other hypercoagulable states, because of which I will obtain an antiphospholipid antibody. I will also obtain a C-ANCA and CORRIE as well as KATEY. 2. The other possibility being endocarditis although patient does not have any signs or symptoms of endocarditis. Does not have any fevers. Patient does have reticulonodular densities in the CT of the chest and changes that are consistent with congestive heart failure. Because of which I will obtain an echocardiogram. Patient may eventually need a SONIYA probably on Saturday. REVIEW OF SYSTEMS: CARDIOVASCULAR: No chest pain, no orthopnea, no PND, no palpitations. PULMONARY: Denied any shortness of breath. No cough or hemoptysis. GASTROINTESTINAL: No diarrhea, nausea or vomiting. No abdominal pain. Normoactive bowel sounds. NEUROLOGIC: No headaches, no weakness, no numbness. EXTREMITIES: As mentioned above. Medications were reviewed. PHYSICAL EXAMINATION: Temperature 98.5, pulse of 97, respiratory rate of 18, blood pressure is 121/81. Saturating at 94% on room air. GENERAL: The patient is alert and oriented x3, not in any acute distress. Well developed, well nourished. HEENT: Pupils are round and equally reacting to light. EOMI. No scleral icterus. No conjunctival pallor. Normocephalic, atraumatic. No pharyngeal erythema. No thyromegaly. CARDIOVASCULAR: S1 and S2 present. No murmurs, rubs, or gallops. PULMONARY: Chest is clear to auscultation, no wheezing or crackles. ABDOMEN: Soft, nontender, nondistended, normoactive bowel sounds. No palpable organomegaly. MUSCULOSKELETAL: No joint swelling or deformity. EXTREMITIES: No significant change compared to admission. NEUROLOGICAL: Gross neurological examination did not reveal any focal deficits. SKIN: No rashes. ASSESSMENT AND PLAN: 1. Left leg and left toe ischemia without any significant atherosclerosis; the patient is undergoing workup for alternate diagnosis as mentioned above in the interval history. 2. Type 2 diabetes mellitus. 3. Nicotine abuse. 4. Tachycardia, which resolved. 5. Multiple nodular lesions in the chest CT. Differential being autoimmune disease like 1) Sarcoidosis, 2) Septic emboli, although chance of which is low, because the patient does not have any signs or symptoms of sepsis or endocarditis. 6. Severe peripheral vascular disease. 7. Nicotine abuse history.
[2016-11-17] MEDS ORDERED: HEPARIN SODIUM,PORCINE 5,000 UNIT/ML 1 ML VIAL IV PRN (18:36)
--- NOTE | 2016-11-17 19:31 | P.PN ---
Progress Note - Text Consult dictated 1- Acute R foot ischemia ,S/P Thrombectomy 2- ? Hypercoagulable state ( Doubt, but can't R/O at present) Rec: 1- Agree with Heparin 2- Will initiate work up for Hypercoagulable state as In-pt, but most of work up will be completed as out patient 3- Smoking cassation strongly advised. Answered all questions/concerns
[2016-11-17 20:33] LABS: Glucose,Whole Blood 148 mg/dL (75-99)
[2016-11-17] MEDS: ATORVASTATIN 20 MG TAB PO SCH (20:40)
[2016-11-17] MEDS: ONDANSETRON 4 MG/2 ML VIAL IVP PRN (20:44)
[2016-11-17 20:46] LABS: Prothrombin Time 10.1 sec (9.0-12.0)
[2016-11-17 20:47] LABS: Partial Thromboplastin Time 23.6 sec (22.0-30.0)
[2016-11-18] MEDS: HYDROmorphone 1 MG/ML 1 ML SYRINGE IVP PRN ×3 (02:52→17:43)
[2016-11-18] MEDS: ONDANSETRON 4 MG/2 ML VIAL IVP PRN ×4 (02:52→23:08)
[2016-11-18 05:57] LABS: Glucose,Whole Blood 155 mg/dL (75-99)
[2016-11-18] MEDS: INSULIN LISPRO (humaLOG) 300 UNIT/3 ML VIAL SQ SCH ×4 (06:31→21:11)
[2016-11-18 07:07] LABS: Basophils # (A) 0.1 k/uL (0-0.2); Basophils % (A) 1 %; CH 28.2; CHCM 34.7; Eosinophils # (A) 0.1 k/uL (0-0.7); Eosinophils % (A) 1 %; HCT 38.1 % (34.0-46.0); HDW 2.61; HGB 13.1 gm/dL (11.4-16.0); Luc # (Auto) 0.18; Luc % (Auto) 2; Lymphocytes % (A) 20 %; MCHC 34.3 g/dL (31.0-37.0); MCV 81.6 fL (80.0-100.0); Mean Platelet Volume 8.2; Monocytes # (A) 0.5 k/uL (0-1.0); Monocytes % (A) 5 %; Neutrophils # (A) 7.1 k/uL (1.3-7.7); Neutrophils % (A) 71 %; RBC 4.67 m/uL (3.80-5.40); RDW 13.9 % (11.5-15.5); WBC (Perox) 9.61
--- NOTE | 2016-11-18 07:54 | XR ---
EXAMINATION TYPE: XR chest 1V DATE OF EXAM: 11/18/2016 6:53 AM COMPARISON: Prior chest x-ray and chest CT 17 November 2016 HISTORY: Cough TECHNIQUE: Single frontal view of the chest is obtained. FINDINGS: Interstitium is prominent, perihilar vascular indistinctness suspected. No pneumothorax or pleural effusion. IMPRESSION: Correlate for volume overload, pulmonary venous hypertension and interstitial edema. Old granulomatous disease.
[2016-11-18 08:32] LABS: ALT 33 U/L (9-52); AST 35 U/L (14-36); Alkaline Phosphatase 119 U/L (38-126); Anion Gap 10 mmol/L; Blood Urea Nitrogen 12 mg/dL (7-17); Calcium 8.4 mg/dL (8.4-10.2); Carbon Dioxide 23 mmol/L (22-30); Chloride 106 mmol/L (98-107); Glucose 144 mg/dL (74-99); Non-African American GFR(MDRD) >60 (>60 ml/min/1.73 sqM); Phosphorous 2.8 mg/dL (2.5-4.5); Sodium 139 mmol/L (137-145); Total Bilirubin 1.3 mg/dL (0.2-1.3)
[2016-11-18 08:35] LABS: Potassium 4.2 mmol/L (3.5-5.1)
[2016-11-18] MEDS: ASPIRIN 81 MG CHEW PO SCH (08:53)
[2016-11-18] MEDS: ATORVASTATIN 20 MG TAB PO SCH (08:53)
[2016-11-18] MEDS: FAMOTIDINE 20 MG TAB PO SCH (08:53)
[2016-11-18] MEDS: NICOTINE 21MG/24HR PATCH TRANSDERM SCH (08:53)
--- NOTE | 2016-11-18 10:38 | P.PN ---
Progress Note - Text no adverse events overnight nausea seems better OOB yesterday events noted AF VSS lungs; course breath sounds bilaterally EXTR; left thigh incision is clean; mild reactive erythema noted; no hematoma or infection left foot; toes 2-5 beginning to demarcate at their tips; dry gangrene; tissue overlying PIP and MIP joints marginal, palpable left dorsalis pedis pulse bi to triphasic posterior tibial and dorsalis pedis pulse; erythema and edema overlying dorsum of foot is improved but not resolved, no infection Labs; reviewed impression/plan 1. s/p left superficial femoral endarterectomy with patch POD #2 continue anticoagulation; patient's regimen changed to enoxaperin 1mg/kg BID and warfarin 2.5mg po q D home health nurse/case management continue OT/PT needs offloading shoe; non-weight bearing on left forefoot following
[2016-11-18] MEDS: ENOXAPARIN 80 MG/0.8 ML SYRINGE SQ SCH ×2 (12:04→21:11)
[2016-11-18] MEDS: HEPARIN SODIUM,PORCINE/D5W PMX 25,000 UNIT in DEXTROSE/WATER 1 500ML.BAG IV SCH (12:05)
[2016-11-18 12:06] LABS: Glucose,Whole Blood 170 mg/dL (75-99)
[2016-11-18] MEDS: SODIUM CHLORIDE 0.9% 1,000 ML IV SCH (12:06)
--- NOTE | 2016-11-18 13:33 | CONS ---
DATE OF CONSULTATION: 11/17/2016 CHIEF COMPLAINT: Severe pain and cyanosis of the right foot toe. HISTORY OF PRESENT ILLNESS: Peg is a 51-year-old female with history of diabetes mellitus, not insulin-dependent, as well as heavy smoking. She presented to the emergency room with a black discoloration of the right foot toe. A few hours before presentation, the patient reported having erythema of the right foot toe and insidious pain for the last 3 days. She denies having any trauma or other recent surgery, chest pain or shortness of breath. The patient denied having any prior episodes in the past. She was found to have significant peripheral arterial disease. She was taken to the operating room by Dr. Cunningham, was found to have high-grade left superficial femoral artery stenosis with no evidence of hemorrhagic plaque. She had left femoral and superficial femoral endarterectomy with bovine patch angioplasty and a complete arteriogram. The patient reported feeling less pain. The ( ) are still back in color. The patient denied having any prior personal history or any family history of thromboembolic events or early stroke. She denies anorexia or weight loss. Denies any chest pain or cardiac palpitation. PAST MEDICAL HISTORY: 1. Adult onset diabetes mellitus. 2. Depression. PAST SURGICAL HISTORY: None. SOCIAL HISTORY: The patient smokes 1 pack of cigarettes daily. 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 FAMILY HISTORY: Unremarkable for any thromboembolic events. On examination, the patient appeared alert and oriented. Skin is warm and dry. Hair distribution within normal for age and gender. Blood pressure was 112/67, pulse was 94 and regular, respiratory rate was 18, not labored. HEENT: No pathologic lymphadenopathy. Trachea was in midline. Chest was clear with good air exchange bilaterally. Heart sounds were normal, S1 and S2. There was no S3, rubs or murmurs auscultated. The abdomen was soft. The liver and the spleen were not clinically palpable. There were no masses, tenderness or inguinal lymphadenopathy. Extremities appear to be grossly unremarkable except black purplish discoloration to her back in place discoloration to right foot toes. IMPRESSION: 1. Acute ischemia of the right foot toe, likely due to peripheral vascular disease and diabetes. Potential hypercoagulable state cannot be totally ruled out, though clinically I think it is unlikely. 2. Adult onset type 2 [id number] diabetes mellitus. 3. Depression. RECOMMENDATIONS: 1. Discussed potential underlying hypercoagulable state with the patient at length. 2. Will initiate hypercoagulable workup while hospitalized. Most of the workup, especially genetic studies, will be performed in an outpatient setting due to insurance regulations and cost. 3. I agree fully agree with anticoagulation by heparin and subsequently with Coumadin. 4. I agree with CT scan to evaluate potential underlying occult malignancy 5. Will follow the patient along with you in the hospital. Further recommendations to follow at a later time. Thank you for asking us for the privilege to participate in the care of Peg.
--- NOTE | 2016-11-18 13:37 | CONS ---
DATE OF CONSULTATION: 11/17/2016 REASON FOR CONSULTATION: Critical care management and respiratory management. HISTORY OF PRESENTING ILLNESS: Ms. Peg Watts is seen, evaluated, and examined. This patient is a 51-year-old female, who presented into the emergency department with problems associated with left foot pain. Symptoms have been going on for extended period of time, for days to weeks. Lately the foot pain was very worse. Patient started having issues associated with some redness and pain in the later part of October in the fifth toe/little toe and was radiating upwards. Patient has been taking antibiotics without any significant relief. Started having feeling of numbness and swelling. Patient has been taking oral antibiotics in the form of Keflex as well as Augmentin. Patient also had venous Doppler study, which was negative. Arterial Doppler; however, positive for absence of circulation in the foot involving the second to fourth digits. Patient was brought into the emergency department as per recommendation of primary care service. The patient was seen, evaluated, examined and admitted to the hospital with Vascular Surgery on consult by Dr. Rapp. Patient underwent CT angiogram on 11/15 which revealed atherosclerotic common iliac artery with focal stenosis of superficial femoral artery on the left side at the level of adductor hiatus. Borderline splenomegaly is seen. Foot swelling has been seen as well. Asymmetry and left external iliac artery noted with borderline enlargement of femoral lymph node up to 9 mm, likely reactive. For details, please refer to the CT angiography. Patient was evaluated by vascular surgery and was recommended ( ). Of note that the CHAPITO index was only 0.69. Patient was recommended for surgical intervention. The patient also underwent a chest x-ray and CT which has been reviewed by me as well. X-ray revealed presence of diffuse reticular nodular infiltrates. CT scan of the chest reviewed and revealed splenomegaly, fatty infiltration of the liver, small bilateral pleural effusion is seen. Bilateral subcentimeter soft tissue nodules were seen. No significant enlargement of the lung parenchyma or enlargement of the mediastinal; however, was noted. Past medical history is significant for diabetes mellitus. Mood disorder, depression, history of smoking about 1 pack per day. ALLERGIES: CODEINE. MEDICATIONS: Augmentin, cinnamon, [id number] supplements and has been on Motrin as well. Current medications while in the hospital include aspirin 81 mg daily, Lipitor 20 mg daily, Pepcid 20 mg, heparin IV as per protocol and also on Dilaudid for pain control, sliding scale insulin and Reglan, K-mag-Phos replacement protocol, nicotine patch. Also on normal saline 100 mL an hour. Zofran as needed. On examination, most recent vitals include blood pressure is 112/67, respiratory rate 18, pulse 94, temperature 98, saturation 94% on room air. HEENT EXAMINATION: Otherwise atraumatic. Normocephalic. Pharynx is clear without exudate. NECK: Supple. No lymphadenopathy, jugular venous distention or carotid bruit. LUNGS: Bilateral good air entry is present without significant rales, rhonchi, or rub. HEART: Regular rate and rhythm. S1 and S2 audible. ABDOMEN: Soft. No rebound or rigidity. EXTREMITIES: +1 peripheral pulses. NEUROLOGICAL EXAMINATION: Otherwise, awake and alert. The CT scan of the chest has been reviewed. Bilateral calcified nodules are present which are all subcentimeter in size. These nodules are unclear etiology. Pulmonary sarcoidosis versus chronic granulomatous disease, however, is in the differential diagnosis. Patient will likely require further work up in outpatient setting, which includes pulmonary function testing and possibly a high resolution CT scan. May require lung biopsy as well in the near future. ( ) 2. Peripheral arterial disease with occlusion of left leg and left foot ischemia. 3. History of smoking and nicotine use. 4. Poorly controlled diabetes mellitus. PLAN: As above. Continue supportive care. Follow clinical course closely. Will observe clinical course and further recommendations pending.
[2016-11-18 17:13] LABS: Glucose,Whole Blood 196 mg/dL (75-99)
[2016-11-18] MEDS: WARFARIN 2.5 MG TAB PO SCH (17:43)
[2016-11-18] MEDS ORDERED: WARFARIN 5 MG TAB PO SCH (18:00)
[2016-11-18 20:51] LABS: Glucose,Whole Blood 231 mg/dL (75-99)
[2016-11-18 22:37] VITALS: RESP 16
[2016-11-18] MEDS: HYDROmorphone 2 MG TAB PO PRN (23:08)
[2016-11-19 03:19] LABS: Cardiolipin Ab IgG <9.0 GPL (<15); Cardiolipin Ab IgM <9.0 MPL (<12.5)
[2016-11-19 05:49] LABS: Glucose,Whole Blood 154 mg/dL (75-99)
[2016-11-19 06:35] LABS: Basophils % (A) 0 %; CH 27.3; CHCM 33.3; Eosinophils # (A) 0.1 k/uL (0-0.7); Eosinophils % (A) 1 %; HCT 39.7 % (34.0-46.0); HDW 2.52; HGB 12.9 gm/dL (11.4-16.0); Luc % (Auto) 2; Lymphocytes # (A) 2.1 k/uL (1.0-4.8); Lymphocytes % (A) 21 %; MCH 26.7 pg (25.0-35.0); MCHC 32.4 g/dL (31.0-37.0); MCV 82.3 fL (80.0-100.0); Mean Platelet Volume 7.3; Monocytes # (A) 0.5 k/uL (0-1.0); Monocytes % (A) 5 %; Neutrophils # (A) 7.2 k/uL (1.3-7.7); Neutrophils % (A) 71 %; RBC 4.82 m/uL (3.80-5.40); RDW 13.9 % (11.5-15.5); WBC 10.1 k/uL (3.8-10.6); WBC (Perox) 10.22
[2016-11-19 06:43] LABS: Prothrombin Time 10.3 sec (9.0-12.0)
[2016-11-19] MEDS: ONDANSETRON 4 MG/2 ML VIAL IVP PRN (06:47)
[2016-11-19] MEDS: HYDROmorphone 2 MG TAB PO PRN ×2 (06:48→12:18)
[2016-11-19] MEDS: INSULIN LISPRO (humaLOG) 300 UNIT/3 ML VIAL SQ SCH ×2 (06:49→12:05)
[2016-11-19 06:51] LABS: ALT 50 U/L (9-52); AST 29 U/L (14-36); Alkaline Phosphatase 137 U/L (38-126); Anion Gap 11 mmol/L; Blood Urea Nitrogen 11 mg/dL (7-17); Calcium 8.7 mg/dL (8.4-10.2); Carbon Dioxide 23 mmol/L (22-30); Chloride 105 mmol/L (98-107); Glucose 157 mg/dL (74-99); Magnesium 1.7 mg/dL (1.6-2.3); Non-African American GFR(MDRD) >60 (>60 ml/min/1.73 sqM); Phosphorous 3.1 mg/dL (2.5-4.5); Potassium 4.1 mmol/L (3.5-5.1); Sodium 139 mmol/L (137-145); Total Bilirubin 0.9 mg/dL (0.2-1.3)
[2016-11-19 06:58] VITALS: PULSE 97
--- NOTE | 2016-11-19 08:24 | PN ---
DATE OF SERVICE: 11/18/2016 Ms. Watts is a 51-year-old female who is seen, evaluated, and examined on the sixth floor. She is recovering from her left superficial femoral artery and endarterectomy and graft placement related to thrombosis and arterial occlusion, likely peripheral arterial disease related to her extensive smoking and diabetes. The ischemia appears to be involving the left foot toes and likely embolic phenomenon from the main occlusion. Patient is recovering nicely from the surgery. Patient has been found to have multiple small calcified nodule in the lungs which we are following. She denies any chest pain or shortness of breath. Unfortunately, no previous x-rays are available at this point in time in the hospital to compare with the current x-ray and the CAT scan. Clinically, she is recovering nicely. Sugars remain an issue; but however, relatively better under control. Her last set of vitals include blood pressure 120/70, respiratory rate 20, pulse 96, temperature 98, saturation of 98%. HEENT: Unremarkable. NECK: Supple without lymphadenopathy, jugular venous distention or carotid bruit. LUNGS: Bilateral good air entry is present without significant rales, rhonchi, or rub. HEART: Regular rate and rhythm. S1 and S2 audible. Abdomen is soft. No rebound or rigidity. EXTREMITIES: +1 peripheral pulses. NEUROLOGICAL EXAMINATION: Otherwise, awake and alert. No focal neurological deficit. Last chest x-ray performed earlier today reviewed and compared with the prior x-ray, overall interstitial edema has been noted with old granulomatous disease. Otherwise fairly unremarkable. Patient has been evaluated by the Hematology Services as well. Patient is undergoing hypercoagulable work-up. She is likely to be planned for heparin and Coumadin down the road. Current medications reviewed which include aspirin 81 mg daily, Lipitor 20 mg daily, Lovenox 70 mg q.12. Also on Pepcid, Dilaudid, sliding scale insulin, nicotine patch and Coumadin. IMPRESSION: 1. Thrombosis and arterial occlusion of left superficial femoral artery, status post endarterectomy and graft placement. 2. Peripheral thrombi ischemia of the left foot, toes. 3. Calcified nodules bilaterally in the lung. 4. Extensive history of smoking and nicotine use. Plan and recommendation is at this point in time will she is hospitalized, will monitor and observe. Outpatient will get a high resolution CT scan, pulmonary function testing. Patient has been counseled about smoking cessation as well. Will try to obtain any radiographs if unavailable and compared with the current one. Further recommendations pending.
[2016-11-19] MEDS: ASPIRIN 81 MG CHEW PO SCH (08:48)
[2016-11-19] MEDS: FAMOTIDINE 20 MG TAB PO SCH (08:48)
[2016-11-19] MEDS: ENOXAPARIN 80 MG/0.8 ML SYRINGE SQ SCH ×2 (08:48→17:41)
[2016-11-19] MEDS: NICOTINE 21MG/24HR PATCH TRANSDERM SCH (08:49)
--- NOTE | 2016-11-19 10:20 | P.PN ---
Subjective Principal diagnosis: GENERAL EXAM: Alert, active, comfortable in no apparent distress. HEAD: Normocephalic. EYES: Normal reaction of pupils, equal size. NOSE: Clear with pink turbinates. THROAT: No erythema or exudates. NECK: No masses, no JVD. CHEST: No chest wall deformity. LUNGS: Equal air entry with no crackles, wheeze, rhonchi or dullness. CVS: S1 and S2 normal with no audible mumurs, regular rhythm. ABDOMEN: No hepatosplenomegaly, normal bowel sounds, no guarding or rigidity. EXTREMITIES: No edema noted, pedal pulses palpable. Left foot dressing in place , dry and intact. SKIN: No rashes CENTRAL NERVOUS SYSTEM: No focal deficits, tone is normal in all 4 extremities. This is a 51-year-old female who is being evaluated and examined today on the sixth floor. This patient is recovering from her left superficial femoral artery and endarterectomy and graft placement related to a thrombus and arterial occlusion likely peripheral arterial disease related to her extensive smoking and diabetes history. Patient is recovering well from surgery. Patient was also noted to have multiple small calcified nodules in the lungs which we will continue to follow. She denies any chest pain or shortness of breath. Upon examination the patient is resting up in bed she denies any shortness of breath chest pain or coughing. Objective - Vital Signs Vital signs: Vital Signs Temp 98.2 F 11/19/16 08:52 Pulse 97 11/19/16 08:52 Resp 16 11/19/16 08:52 BP 121/70 11/19/16 08:52 Pulse Ox 98 11/19/16 08:52 Intake & Output 11/18/16 11/19/16 11/19/16 18:59 06:59 18:59 Intake Total 1362.082 650 Output Total 2000 350 Balance -637.918 300 Weight 66.2 kg Intake: IV 700 Sodium Chloride 0.9% 1, 700 000 ml @ 100 mls/hr IV . Q10H BRANDY Rx#:[id number] Intake, IV Titration 302.082 Amount Heparin Sodium,Porcine/ 134.082 D5w Pmx 25,000 unit In Dextrose/Water 1 500ml. bag @ 18 UNITS/KG/HR 25. 27 mls/hr IV .[id number] BRANDY Rx#:[id number] Heparin Sodium,Porcine/ 168 D5w Pmx 25,000 unit In Dextrose/Water 1 500ml. bag As IV .[employer] ONE Rx #:[id number] Oral 360 650 Output: Urine 2000 350 Other: Voiding Method Toilet # Voids 1 1 ABP, PAP, CO, CI - Last Documented Arterial Blood Pressure 133/71 - Exam GENERAL EXAM: Alert, active, comfortable in no apparent distress. HEAD: Normocephalic. EYES: Normal reaction of pupils, equal size. NOSE: Clear with pink turbinates. THROAT: No erythema or exudates. NECK: No masses, no JVD. CHEST: No chest wall deformity. LUNGS: Equal air entry with no crackles, wheeze, rhonchi or dullness. CVS: S1 and S2 normal with no audible mumurs, regular rhythm. ABDOMEN: No hepatosplenomegaly, normal bowel sounds, no guarding or rigidity. EXTREMITIES: No edema noted, pedal pulses palpable. Left foot dressing in place draining intact. SKIN: No rashes CENTRAL NERVOUS SYSTEM: No focal deficits, tone is normal in all 4 extremities. - Labs CBC & Chem 7: 11/19/16 05:57 11/19/16 05:57 Labs: Abnormal Lab Results - Last 24 Hours (Table) 11/18/16 11/18/16 11/18/16 Range/Units 11:59 16:42 20:49 Creatinine (0.52-1.04) mg/dL Glucose (74-99) mg/dL POC Glucose (mg/dL) 170 H 196 H 231 H (75-99) mg/dL Alkaline Phosphatase (38-126) U/L Total Protein (6.3-8.2) g/dL Albumin (3.5-5.0) g/dL 11/19/16 11/19/16 Range/Units 05:47 05:57 Creatinine 0.50 L (0.52-1.04) mg/dL Glucose 157 H (74-99) mg/dL POC Glucose (mg/dL) 154 H (75-99) mg/dL Alkaline Phosphatase 137 H (38-126) U/L Total Protein 6.0 L (6.3-8.2) g/dL Albumin 3.2 L (3.5-5.0) g/dL Assessment and Plan Plan: Assessment Thrombosis and arterial occlusion of left superficial femoral artery status post endarterectomy and graft placement Peripheral thrombi ischemia of the left foot and toes Calcified nodules bilaterally in the lungs Extensive history of smoking and nicotine use Diabetes mellitus type 2 Plan Medications have been reviewed and will be continued as ordered. We will get a high-resolution computed tomography scan and pulmonary function testing in the outpatient setting. The patient has been counseled at length about smoking sensation. We will continue to monitor labs and adjust treatment as necessary. I performed an examination of the patient and discussed their management with the nurse practitioner. I have reviewed the nurse practitioner's note and agree with the documented findings and plan of care.
--- NOTE | 2016-11-19 11:09 | P.PN ---
Progress Note - Text 51-year-old white female, post left superficial femoral artery endarterectomy with patch angioplasty patient is doing well today patient has a workup for hypercoagulation incision site is healing good Plan is patient will go home on now Lovenox and Coumadin and offloading shoes patient will follow-up in the office on Saturday with
--- NOTE | 2016-11-19 11:40 | PN ---
A 51-year-old female admitted with toe ischemia and patient is clinically doing well at this point of time. There is a possibility of hypercoagulable state contributing to her ischemia as there is no significant atherosclerotic vascular disease on surgical evaluation and the other possibility is sarcoidosis. Autoimmune panel was ordered, which will take some time for the panel to come back and once we are able to get her to Lovenox filled, patient will be discharged with bridging Lovenox and Coumadin and Coumadin will be started today with repeat INR tomorrow and the possibility of endocarditis is significantly low, because as patient does not have any symptoms consistent with that. REVIEW OF SYSTEMS: REVIEW OF SYSTEMS: CARDIOVASCULAR: No chest pain, no orthopnea, no PND, no palpitations. PULMONARY: Denied any shortness of breath. No cough or hemoptysis. GASTROINTESTINAL: No diarrhea, nausea or vomiting. No abdominal pain. Normoactive bowel sounds. NEUROLOGIC: No headaches, no weakness, no numbness. Medications were reviewed. PHYSICAL EXAMINATION: VITAL SIGNS: Temperature 97.9, pulse of 91, respiratory rate of 17, blood pressure is 96/59, saturating at 97% on room air. GENERAL: The patient is alert and oriented x3, not in any acute distress. Well developed, well nourished. HEENT: Pupils are round and equally reacting to light. EOMI. No scleral icterus. No conjunctival pallor. Normocephalic, atraumatic. No pharyngeal erythema. No thyromegaly. CARDIOVASCULAR: S1 and S2 present. No murmurs, rubs, or gallops. PULMONARY: Chest is clear to auscultation, no wheezing or crackles. ABDOMEN: Soft, nontender, nondistended, normoactive bowel sounds. No palpable organomegaly. MUSCULOSKELETAL: No joint swelling or deformity. NEUROLOGICAL: Gross neurological examination did not reveal any focal deficits. SKIN: No rashes. EXTREMITIES: Significantly improved. Patient has improvement in cyanosis in her five toes. LABORATORY DATA: CBC, CMP, essentially within normal limits. INR is 1.0. ASSESSMENT AND PLAN: 1. Left leg and left toe ischemic involving all the five toes. Possibility of hypercoagulable state as mentioned above. 2. Type 2 diabetes mellitus. 3. Nicotine abuse. 4. Multiple nodular lesions in the chest and will need to be ruled out for sarcoidosis as an outpatient. Possibility of septic emboli is significantly low. 5. Severe peripheral vascular disease. 6. Nicotine abuse history. PLAN: Continue with present medications. Patient will be started on Lovenox and Coumadin. Also day of discharge tomorrow, once we are able to fill her Lovenox with bridging Lovenox and Coumadin.
[2016-11-19 11:59] LABS: Glucose,Whole Blood 176 mg/dL (75-99)
[2016-11-19 12:51] VITALS: BP 124/69; TEMP 97.8
[2016-11-19 13:28] VITALS: BMI 26.6
[2016-11-19 14:32] LABS: C-ANCA <1:20 Titer (<1:20); P-ANCA <1:20 Titer (<1:20)
[2016-11-19] MEDS: WARFARIN 2.5 MG TAB PO SCH (17:41)
--- NOTE | 2016-11-20 10:34 | ECHOF ---
Referral Reason:LV function MEASUREMENTS -------- HEIGHT: 157.5 cm WEIGHT: 65.8 kg BP: 121/70 RVIDd: 2.4 cm (< 3.3) IVSd: 0.8 cm (0.6 - 1.1) LVIDd: 5.0 cm (3.9 - 5.3) LVPWd: 0.8 cm (0.6 - 1.1) IVSs: 1.2 cm LVIDs: 2.9 cm LVPWs: 1.4 cm LA Diam: 3.0 cm (2.7 - 3.8) LAESV Index (A-L): 19.87 ml/m Ao Diam: 2.7 cm (2.0 - 3.7) AV Cusp: 1.6 cm (1.5 - 2.6) LA Diam: 3.0 cm (2.7 - 3.8) MV EXCURSION: 12.972 mm (> 18.000) MV EF SLOPE: 90 mm/s (70 - 150) EPSS: 1.1 cm MV E Reynold: 1.30 m/s MV DecT: 159 ms MV A Reynold: 0.74 m/s MV E/A Ratio: 1.77 RAP: 5.00 mmHg RVSP: 29.91 mmHg FINDINGS -------- Sinus rhythm. This was a technically adequate study. The left ventricular size is normal. Left ventricular wall thickness is normal. Overall left ventricular systolic function is mild-moderately impaired with, an EF between 40 - 45 %. Basal inferior LV wall motion is hypokinetic. Mid inferior LV wall motion is hypokinetic. Apical lateral LV wall motion is akinetic. Apical inferior LV wall motion is akinetic. The right ventricle is normal in size and function. Normal LA size by volume 22+/-6 ml/m2. Aortic valve is trileaflet and is mildly thickened. Mild mitral annular calcification present. Moderate mitral regurgitation is present. Mild tricuspid regurgitation present. Right ventricular systolic pressure is normal at < 35 mmHg. The pulmonic valve was not well visualized. There is no pulmonic regurgitation present. The aortic root size is normal. Normal inferior vena cava with normal inspiratory collapse consistent with estimated right atrial pressure of 5 mmHg. There is a trivial pericardial effusion present. CONCLUSIONS -------- 1. Sinus rhythm. 2. Aortic valve is trileaflet and is mildly thickened. 3. Mild mitral annular calcification present. 4. Moderate mitral regurgitation is present. 5. Mild tricuspid regurgitation present. 6. Right ventricular systolic pressure is normal at < 35 mmHg. 7. There is no pulmonic regurgitation present. 8. The aortic root size is normal. 9. Normal inferior vena cava with normal inspiratory collapse consistent with estimated right atrial pressure of 5 mmHg. 10. There is a trivial pericardial effusion present. 11. This was a technically adequate study. 12. Left ventricular wall thickness is normal. 13. Overall left ventricular systolic function is mild-moderately impaired with, an EF between 40 - 45 %. 14. Basal inferior LV wall motion is hypokinetic. 15. Mid inferior LV wall motion is hypokinetic. 16. Apical lateral LV wall motion is akinetic. 17. Apical inferior LV wall motion is akinetic. 18. Normal LA size by volume 22+/-6 ml/m2. FURNACE OPERATOR AND TENDER: Alejandro Coello RDCS
--- NOTE | 2016-11-20 16:35 | DS ---
DATE OF ADMISSION: 11/15/2016 DATE OF DISCHARGE: 11/19/2016 The patient is a 51 -year-old female came in with distal ( ) involving all the five toes in the left leg. Patient underwent endarterectomy of the left ( ) vasculature and patient has atherosclerotic vasculitis ( ) but does not explain the amount of ischemia she has and also the patient has an ischemic ulcer. The patient may not require any antibiotics because of which patient underwent ( ) the patient also has ( ) pulmonary nodules. Possibility of sarcoidosis contributing to both versus some hypercoagulable contributing to her distal limb ischemia involving the left lower limb vasculature because of which oncology evaluated the patient, oncology will follow the patient as an outpatient. We will do further testing as an outpatient and pulmonology evaluated the patient. They will follow the patient for possibility of sarcoidosis as an outpatient. Patient was seen and examined on the day of discharge. Vitals are stable. PHYSICAL EXAMINATION: GENERAL: The patient is alert and oriented x3, not in any acute distress. Well developed, well nourished. HEENT: Pupils are round and equally reacting to light. EOMI. No scleral icterus. No conjunctival pallor. Normocephalic, atraumatic. No pharyngeal erythema. No thyromegaly. CARDIOVASCULAR: S1 and S2 present. No murmurs, rubs, or gallops. PULMONARY: Chest is clear to auscultation, no wheezing or crackles. ABDOMEN: Soft, nontender, nondistended, normoactive bowel sounds. No palpable organomegaly. MUSCULOSKELETAL: No joint swelling or deformity. EXTREMITIES: No significant change in the left lower extremity cyanosis compared to admission, actually a little bit better compared to admission. NEUROLOGICAL: Gross neurological examination did not reveal any focal deficits. SKIN: No rashes. Patient will be discharged on anticoagulation with bridging Lovenox and once her INR reaches around 2 to 3, her Lovenox can be discontinued and Coumadin will be continued. Patient will be referred to patient will follow with Dr. Ting Borjas with a repeat INR in 3 days, the patient will follow with Dr. Ting Borjas in 3 to 5 days. The patient will be discharged on bridging Lovenox and Coumadin 5 mg daily. FINAL DIAGNOSES: 1. The leg and left toe limb ischemia secondary to atherosclerotic vascular disease along with some hypercoagulable state. Sarcoidosis is also in the differential. 2. Bilateral multiple possible effusion in the lung. 3. Type 2 diabetes mellitus. 4. Nicotine abuse. 5. Severe peripheral vascular disease. Counselling regarding ( ) was provided. The patient will be discharged today. Cardiac diet. Activity as tolerated. Please refer to my depart summary for further details of discharge medications. Patient will follow up with vascular surgery in about one week, Dr. Ting Borjas in about 3 to 5 days. [facility] care will follow the patient. The patient will follow up with Dr. Pedro Pablo Johnson in one week and patient will also follow-up with Dr. Fountain in about a week. Repeat INR in 3 days. Patient had some vaginal candidiasis. We will give one dose of Fluconazole.
--- NOTE | 2016-11-20 16:57 | DS ---
DATE OF ADMISSION: 11/15/2016 DATE OF DISCHARGE: 11/19/2016 ADDENDUM: Spent greater than 35 minutes in total discharge process.
== END 2016-11-19 17:56 | disposition home or self-care (01) | DRG 253 ==
LOC: EC 07:44 → 6SEL 12:40 → 6ICU 11-16 12:08 → 6SEL 11-17 15:48
PROVIDERS: ADMIT Hospitalist; ATTEND Hospitalist
PROC: 04UL0JZ Supplement Left Femoral Artery with Synthetic Substitute, Open Approach (ICD-10-PCS; 2016-11-16)
PROC: B41G1ZZ Fluoroscopy of Left Lower Extremity Arteries using Low Osmolar Contrast (ICD-10-PCS; 2016-11-16)
PROC: 04CL0ZZ Extirpation of Matter from Left Femoral Artery, Open Approach (ICD-10-PCS; principal; 2016-11-16 07:30)
DX: E11.52 Type 2 diabetes mellitus with diabetic peripheral angiopathy with gangrene (principal); D68.69 Other thrombophilia; I75.022 Atheroembolism of left lower extremity; E11.621 Type 2 diabetes mellitus with foot ulcer; E11.65 Type 2 diabetes mellitus with hyperglycemia; L89.890 Pressure ulcer of other site, unstageable; B37.3 Candidiasis of vulva and vagina; D72.829 Elevated white blood cell count, unspecified; I70.202 Unspecified atherosclerosis of native arteries of extremities, left leg; R20.0 Anesthesia of skin; I77.1 Stricture of artery; D86.0 Sarcoidosis of lung; R23.0 Cyanosis; R00.0 Tachycardia, unspecified; F17.210 Nicotine dependence, cigarettes, uncomplicated; R11.0 Nausea; K76.0 Fatty (change of) liver, not elsewhere classified; F32.9 Major depressive disorder, single episode, unspecified; Z83.3 Family history of diabetes mellitus; Z88.5 Allergy status to narcotic agent; Z87.898 Personal history of other specified conditions; Z71.3 Dietary counseling and surveillance; Z79.84 Long term (current) use of oral hypoglycemic drugs; Z79.2 Long term (current) use of antibiotics; Z79.1 Long term (current) use of non-steroidal anti-inflammatories (NSAID); Z79.899 Other long term (current) drug therapy; Z83.2 Family history of diseases of the blood and blood-forming organs and certain disorders involving the immune mechanism
CPT/HCPCS: 36415; 36620; 71010; 71020; 71260; 75635; 80048; 80053; 81003; 83036; 83605; 83735; 84100; 84703; 85025; 85610; 85730; 86147; 86235; 86255; 87040; 88304; 93306; 93923; 96365; 96366; 96376; 99285

== ENCOUNTER 2016-11-22 11:40 | Inpatient (IN) | payer BC ==
--- NOTE | 2016-11-22 12:31 | ED ---
Recheck HPI - General Chief Complaint: Recheck/Abnormal Lab/Rx Stated Complaint: SENT BY FOR ABNORMAL LABS Time Seen by Provider: 11/22/16 12:10 Source: patient, RN/, RN notes reviewed Mode of arrival: ambulatory Limitations: no limitations - History of Present Illness Initial Comments: This is a 51-year-old female who had a procedure done earlier this week on her left foot who was found have an elevated INR. She initially was placed on lower dose Coumadin but it was found that she had somehow taking double the dose. Her INR this morning was 10 she's here for reevaluation of this. She denies any spontaneous bleeding or bruising headache dizziness blurry vision chest pain shortness breath or other symptoms. She was seen in the emergency department and Dr. Cunningham. Complaint: abnormal lab - Related Data Home Medications Medication Instructions Recorded Confirmed Cinnamon Bark [Cinnamon] 500 mg PO DAILY 11/15/16 11/22/16 Cyanocobalamin (Vitamin B-12) 1,000 mcg PO DAILY 11/15/16 11/22/16 [Vitamin B-12] Empagliflozin/Linagliptin 1 tab PO DAILY 11/15/16 11/22/16 [Glyxambi 25 mg-5 mg Tablet] Fish Oil/Dha/Epa [Fish Oil 1,200 1 cap PO DAILY 11/15/16 11/22/16 mg Fish Oil] Pyridoxine [Vitamin B-6] 50 mg PO DAILY 11/15/16 11/22/16 Turmeric Root Extract [Turmeric] 500 mg PO DAILY 11/15/16 11/22/16 Meclizine [Antivert] 25 mg PO BID PRN 11/22/16 11/22/16 Warfarin [Coumadin] 5 mg PO HS 11/22/16 11/22/16 traMADol HCL [Ultram] 100 mg PO QID PRN 11/22/16 11/22/16 Previous Rx's Medication Instructions Recorded Aspirin 81 mg PO DAILY #30 chew 11/19/16 Atorvastatin [Lipitor] 20 mg PO HS #30 tab 11/19/16 Enoxaparin [Lovenox] 70 mg SQ Q12HR #14 syringe 11/19/16 Fluconazole [Diflucan] 200 mg PO DAILY #1 tab 11/19/16 Allergies Allergy/AdvReac Type Severity Reaction Status Date / Time codeine AdvReac Nausea & Verified 11/22/16 12:26 Vomiting Review of Systems ROS Statement: Those systems with pertinent positive or pertinent negative responses have been documented in the HPI. ROS Other: All systems not noted in ROS Statement are negative. Past Medical History Past Medical History: Diabetes Mellitus Additional Past Medical History / Comment(s): NIDDM type II History of Any Multi-Drug Resistant Organisms: None Reported Past Surgical History: Tonsillectomy Additional Past Surgical History / Comment(s): D&C, tooth extraction with anesthesia. Past Anesthesia/Blood Transfusion Reactions: No Reported Reaction, Motion Sickness Past Psychological History: Depression Additional Psychological History / Comment(s): Pt states she has hx of depression and that it is stable. She sees Dr. Menon for her depression. Pt lives at home with her spouse and 2 adult children. She is independent. Smoking Status: Current every day smoker Past Alcohol Use History: None Reported Additional Past Alcohol Use History / Comment(s): Pt started smoking in 1982. She is less than a ppd smoker. Past Drug Use History: None Reported - Past Family History Father Family Medical History: Liver Disease Additional Family Medical History / Comment(s): Father from liver disease. Mother Family Medical History: No Reported History General Exam - General Exam Comments Initial Comments: This is a well-developed well-nourished awake alert oriented 3 female Limitations: no limitations General appearance: alert, in no apparent distress Head exam: Present: atraumatic, normocephalic, normal inspection Eye exam: Present: normal appearance, PERRL, EOMI. Absent: scleral icterus, conjunctival injection, periorbital swelling Neck exam: Present: normal inspection. Absent: tenderness, meningismus, lymphadenopathy Respiratory exam: Present: normal lung sounds bilaterally. Absent: respiratory distress, wheezes, rales, rhonchi, stridor Cardiovascular Exam: Present: regular rate, normal rhythm, normal heart sounds. Absent: systolic murmur, diastolic murmur, rubs, gallop, clicks Extremities exam: Present: normal capillary refill, other (The left lower extremity is dressed Dr. Marisa garvin previously examine the foot and will not be taken down.) Neurological exam: Present: alert, oriented X3, CN II-XII intact Psychiatric exam: Present: normal affect, normal mood Skin exam: Present: warm, dry, normal color Course Vital Signs 11/22/16 11/22/16 12:00 13:35 Temperature 97.3 F L Pulse Rate 56 L 90 Respiratory 20 18 Rate Blood Pressure 109/62 118/72 O2 Sat by Pulse 98 98 Oximetry Medical Decision Making - Medical Decision Making Patient lab work did show a marked elevation of PT and INR evidence of Coumadin toxicity. I did discuss case with the patient family and with the attending physician and facial be admitted for evaluation and monitoring of toxic Coumadin levels. - Lab Data Result diagrams: 11/22/16 12:35 Lab Results 11/22/16 11/22/16 Range/Units 12:35 12:35 WBC 13.3 H (3.8-10.6) k/uL RBC 6.23 H (3.80-5.40) m/uL Hgb 17.0 H D (11.4-16.0) gm/dL Hct 50.6 H (34.0-46.0) % MCV 81.3 (80.0-100.0) fL MCH 27.3 (25.0-35.0) pg MCHC 33.6 (31.0-37.0) g/dL RDW 14.2 (11.5-15.5) % Plt Count 302 (150-450) k/uL Neutrophils % 72 % Lymphocytes % 21 % Monocytes % 4 % Eosinophils % 1 % Basophils % 1 % Neutrophils # 9.6 H (1.3-7.7) k/uL Lymphocytes # 2.7 (1.0-4.8) k/uL Monocytes # 0.5 (0-1.0) k/uL Eosinophils # 0.1 (0-0.7) k/uL Basophils # 0.1 (0-0.2) k/uL PT >130.0 H (9.0-12.0) sec INR >10.0 H* (<1.1) Disposition Clinical Impression: Coumadin toxicity, Warfarin-induced coagulopathy Disposition: ADMITTED IP TO THIS HOSP Condition: Stable
[2016-11-22 12:52] LABS: Basophils # (A) 0.1 k/uL (0-0.2); Basophils % (A) 1 %; CH 28.1; CHCM 34.8; Eosinophils # (A) 0.1 k/uL (0-0.7); Eosinophils % (A) 1 %; HCT 50.6 % (34.0-46.0); HDW 2.72; Luc # (Auto) 0.29; Luc % (Auto) 2; Lymphocytes # (A) 2.7 k/uL (1.0-4.8); Lymphocytes % (A) 21 %; MCH 27.3 pg (25.0-35.0); MCHC 33.6 g/dL (31.0-37.0); MCV 81.3 fL (80.0-100.0); Mean Platelet Volume 7.9; Monocytes # (A) 0.5 k/uL (0-1.0); Monocytes % (A) 4 %; Neutrophils # (A) 9.6 k/uL (1.3-7.7); Neutrophils % (A) 72 %; RBC 6.23 m/uL (3.80-5.40); RDW 14.2 % (11.5-15.5); WBC 13.3 k/uL (3.8-10.6)
[2016-11-22 12:59] LABS: Prothrombin Time >130.0 sec (9.0-12.0)
[2016-11-22 13:01] LABS: INR >10.0 (<1.1)
[2016-11-22 13:37] VITALS: RESP 18
[2016-11-22] MEDS ORDERED: PHYTONADIONE 10 MG in SODIUM CHLORIDE 0.9% 50 ML IVPB STA (14:40)
[2016-11-22] MEDS ORDERED: SODIUM CHLORIDE 0.9% 1,000 ML IV STA ×2 (14:40)
--- NOTE | 2016-11-22 15:05 | P.GSCN ---
History of Present Illness Consult date: 11/22/16 Reason for Consult: impression; 1. severe dehydration secondary to nausea and vomiting from tramadol 2. over-anticoagulation secondary to warfarin, outpatient augmentin use, and dehydration; no evidence of acute bleed 3. 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 diabetes mellitus 5. nicotine dependence in remission plan 1. vitamin K administration to reduce INR; target is 2-3 2. IV hydration 3. patient will likely require left transmetarsal amputation at later date; continue conservative care at present time; patient has outpatient appointment with Dr. Cunningham on 11/26/2016 HPI 51 y/o woman, well known to the service, underwent left SFA endarterectomy with patch as discussed above. Degree of ischemic disease exceeded degree of athero- occlusive disease; no evidence of embolization from SFA lesion. Suspect that patient has hypercoagulable state or collagen vascular disease that would explain her clincal findings. NOted to have INR > 10 this morning during routine blood draw. Asked to come to ER where labs were repeated and confirmed. Hg noted to be 17. Patient states that she has been vomiting after use of pain medication and had some relief from dramamine. Denies trauma, bleeding. CMHX, PSHx, Habits, Allergies; reviewed PE; EXTR; left femoral, popliteal, dorsalis pedis and posterior tibial pulses are palpable; there is resolving edema of left foot with hyacinth gangrene of toes 1-5 with extension to the dorsum of the forefoot; gangrene is dry; no evidence of infection impression/plan as noted above Dr. Rapp will be available this evening and over the weekend patient has appointment to see DR. Cunningham on 11/26/2016 at 12:30; she should keep it. continue dressing changes as directed Past Medical History Past Medical History: Diabetes Mellitus Additional Past Medical History / Comment(s): NIDDM type II History of Any Multi-Drug Resistant Organisms: None Reported Past Surgical History: Tonsillectomy Additional Past Surgical History / Comment(s): D&C, tooth extraction with anesthesia. Past Anesthesia/Blood Transfusion Reactions: No Reported Reaction, Motion Sickness Past Psychological History: Depression Additional Psychological History / Comment(s): Pt states she has hx of depression and that it is stable. She sees Dr. Menon for her depression. Pt lives at home with her spouse and 2 adult children. She is independent. Smoking Status: Current every day smoker Past Alcohol Use History: None Reported Additional Past Alcohol Use History / Comment(s): Pt started smoking in 1982. She is less than a ppd smoker. Past Drug Use History: None Reported - Past Family History Father Family Medical History: Liver Disease Additional Family Medical History / Comment(s): Father from liver disease. Mother Family Medical History: No Reported History Medications and Allergies Home Medications Medication Instructions Recorded Confirmed Type Cinnamon Bark [Cinnamon] 500 mg PO DAILY 11/15/16 11/22/16 History Cyanocobalamin (Vitamin B-12) 1,000 mcg PO DAILY 11/15/16 11/22/16 History [Vitamin B-12] Empagliflozin/Linagliptin 1 tab PO DAILY 11/15/16 11/22/16 History [Glyxambi 25 mg-5 mg Tablet] Fish Oil/Dha/Epa [Fish Oil 1,200 1 cap PO DAILY 11/15/16 11/22/16 History mg Fish Oil] Pyridoxine [Vitamin B-6] 50 mg PO DAILY 11/15/16 11/22/16 History Turmeric Root Extract [Turmeric] 500 mg PO DAILY 11/15/16 11/22/16 History Meclizine [Antivert] 25 mg PO BID PRN 11/22/16 11/22/16 History Warfarin [Coumadin] 5 mg PO HS 11/22/16 11/22/16 History traMADol HCL [Ultram] 100 mg PO QID PRN 11/22/16 11/22/16 History Allergies Allergy/AdvReac Type Severity Reaction Status Date / Time codeine AdvReac Nausea & Verified 11/22/16 12:26 Vomiting Surgical - Exam Vital Signs Temp Pulse Resp BP Pulse Ox 97.3 F L 56 L 20 109/62 98 11/22/16 12:00 11/22/16 12:00 11/22/16 12:00 11/22/16 12:00 11/22/16 12:00 Results - Labs 11/22/16 12:35 Abnormal Lab Results - Last 24 Hours (Table) 11/22/16 11/22/16 Range/Units 12:35 12:35 WBC 13.3 H (3.8-10.6) k/uL RBC 6.23 H (3.80-5.40) m/uL Hgb 17.0 H D (11.4-16.0) gm/dL Hct 50.6 H (34.0-46.0) % Neutrophils # 9.6 H (1.3-7.7) k/uL PT >130.0 H (9.0-12.0) sec INR >10.0 H* (<1.1)
[2016-11-22] MEDS ORDERED: NALOXONE 0.4 MG/ML 1 ML VIAL IV PRN (15:09)
[2016-11-22] MEDS ORDERED: traMADol 50 MG TAB PO PRN (15:11)
[2016-11-22] MEDS ORDERED: MECLIZINE 25 MG TAB PO PRN (15:11)
[2016-11-22 19:42] LABS: Basophils # (A) 0.1 k/uL (0-0.2); Basophils % (A) 1 %; CH 28.1; CHCM 34.3; Eosinophils # (A) 0.1 k/uL (0-0.7); Eosinophils % (A) 1 %; HCT 45.1 % (34.0-46.0); HDW 2.66; Luc # (Auto) 0.24; Luc % (Auto) 2; Lymphocytes # (A) 2.5 k/uL (1.0-4.8); Lymphocytes % (A) 22 %; MCH 27.3 pg (25.0-35.0); MCHC 33.3 g/dL (31.0-37.0); MCV 82.2 fL (80.0-100.0); Mean Platelet Volume 7.9; Monocytes # (A) 0.4 k/uL (0-1.0); Monocytes % (A) 4 %; Neutrophils % (A) 70 %; RBC 5.48 m/uL (3.80-5.40); RDW 14.2 % (11.5-15.5); WBC 11.4 k/uL (3.8-10.6); WBC (Perox) 11.41
[2016-11-22 20:04] LABS: INR 1.6 (<1.1); Prothrombin Time 15.3 sec (9.0-12.0)
[2016-11-22 20:37] LABS: Glucose,Whole Blood 176 mg/dL (75-99)
[2016-11-22] MEDS ORDERED: ATORVASTATIN 20 MG TAB PO SCH (21:00)
[2016-11-22] MEDS: INSULIN LISPRO (humaLOG) 300 UNIT/3 ML VIAL SQ SCH (21:53)
[2016-11-23 06:30] LABS: Basophils # (A) 0.1 k/uL (0-0.2); Basophils % (A) 1 %; CH 28.1; CHCM 34.6; Eosinophils # (A) 0.1 k/uL (0-0.7); Eosinophils % (A) 1 %; HCT 44.9 % (34.0-46.0); HDW 2.67; HGB 15.4 gm/dL (11.4-16.0); Luc # (Auto) 0.19; Luc % (Auto) 2; Lymphocytes # (A) 2.3 k/uL (1.0-4.8); Lymphocytes % (A) 23 %; MCH 27.9 pg (25.0-35.0); MCHC 34.2 g/dL (31.0-37.0); MCV 81.7 fL (80.0-100.0); Mean Platelet Volume 7.9; Monocytes # (A) 0.5 k/uL (0-1.0); Monocytes % (A) 5 %; Neutrophils # (A) 6.8 k/uL (1.3-7.7); Neutrophils % (A) 68 %; RBC 5.49 m/uL (3.80-5.40); WBC 9.9 k/uL (3.8-10.6); WBC (Perox) 10.02
[2016-11-23 06:34] LABS: Glucose,Whole Blood 182 mg/dL (75-99)
[2016-11-23 06:47] LABS: Anion Gap 7 mmol/L; Blood Urea Nitrogen 13 mg/dL (7-17); Carbon Dioxide 25 mmol/L (22-30); Chloride 103 mmol/L (98-107); Glucose 193 mg/dL (74-99); Non-African American GFR(MDRD) >60 (>60 ml/min/1.73 sqM); Potassium 4.6 mmol/L (3.5-5.1); Sodium 135 mmol/L (137-145)
[2016-11-23] MEDS: INSULIN LISPRO (humaLOG) 300 UNIT/3 ML VIAL SQ SCH ×2 (06:48→12:39)
[2016-11-23 06:49] LABS: INR 1.1 (<1.1); Prothrombin Time 10.9 sec (9.0-12.0)
[2016-11-23 08:26] VITALS: TEMP 96.4
[2016-11-23] MEDS ORDERED: PYRIDOXINE 50 MG TAB PO SCH (09:00)
[2016-11-23] MEDS ORDERED: CYANOCOBALAMIN 500 MCG TAB PO SCH (09:00)
[2016-11-23] MEDS ORDERED: FLUCONAZOLE 100 MG TAB PO SCH (09:00)
[2016-11-23] MEDS ORDERED: ASPIRIN 81 MG CHEW PO SCH (09:00)
[2016-11-23] MEDS ORDERED: LINAGLIPTIN PO SCH (09:00)
[2016-11-23] MEDS ORDERED: EMPAGLIFLOZIN PO SCH (09:00)
--- NOTE | 2016-11-23 10:19 | HP ---
DATE OF ADMISSION: 11/22/2016 CHIEF COMPLAINTS: Coumadin coagulopathy. HISTORY OF PRESENT ILLNESS: This 51-year-old woman with a past medical history of multiple medical problems including diabetes type 2, history of left foot arterial occlusion, history of tonsillectomy, history of depression, history of nicotine dependence, being followed by Dr. Ting Borjas in the outpatient setting, was recent admitted to [facility]. The patient underwent left superficial femoral endarterectomy with bovine patch angioplasty and completion angiogram by on the . The patient was discharged on Coumadin. The patient presented to [facility] with elevated INR, indicating Coumadin coagulopathy. INR was found to be more than 10. PT is more than 130. There is no history of fevers or rigors. No history of headaches, loss of consciousness or seizures. PAST MEDICAL HISTORY: History of recent surgery for peripheral vascular disease, diabetes mellitus type 2, history of nicotine treatment, tonsillectomy, depression. MEDICATIONS: 1. Ultram 100 mg q.i.d. 2. Antivert 25 mg b.i.d. p.r.n. 3. 500 mg p.o. daily. 4. Vitamin D 50 mg daily. 5. Diflucan 200 mg. 6. Fish oil daily. 7. Lovenox 70 mg subcu b.i.d. 8. Vitamin B 2000 mg daily. 9. Cinnamon 500 mg daily. 10. Lipitor 20 mg daily. 11. Aspirin 81 mg daily. 12. Coumadin 5 mg every 6 hours. 13. Glyxambi 25/50, 1 p.o. daily. ALLERGIES: CODEINE. FAMILY HISTORY: History of liver disease. Father passed from the liver disease. SOCIAL HISTORY: Previous history of smoking. No alcohol intake. REVIEW OF SYSTEMS: ENT: No diminished hearing. No diminished vision. CARDIOVASCULAR: No angina or palpitations. RESPIRATORY: No cough or shortness of breath. GI: As mentioned. : No dysuria or hematuria. NERVOUS SYSTEMS: No numbness or weakness. CONSTITUTIONAL: As mentioned earlier. ENDOCRINE: As mentioned. CONSTITUTIONAL: As mentioned. RHEUMATOLOGY: Negative. PSYCHIATRY: As mentioned. PHYSICAL EXAMINATION: GENERAL: Alert, oriented x3. Pulse is 89, blood pressure 116/60, respiration 18, temperature 96.7, pulse ox 98% on room air. HEENT: Conjunctivae normal. Oral mucosa moist. NECK: No JVD. No carotid bruits. CARDIOVASCULAR: S1 and S2 muffled. LUNGS: Breath sounds diminished at the bases No rhonchi, no crackles. ABDOMEN: Soft, nontender. EXTREMITIES: Left leg status post dressing left foot. NERVOUS SYSTEM: No focal deficits. LYMPHATICS: No lymph node palpable in neck possible dressing ptosis. LABS: WBC 13.7, hemoglobin 17. ASSESSMENT: 1. Coumadin coagulopathy. 2. Increased WBC. 3. Increased hemoglobin. 4. Diabetes mellitus type 2. 5. History of recent left superficial femoral endarterectomy with bovine patch angioplasty. 6. Ischemic left leg secondary to hypercoagulable state and arteriosclerotic cardiovascular disease. RECOMMENDATIONS AND DISCUSSION: This 51-year-old woman who presented with multiple complex medical issues, we will monitor the patient closely, continue current medications and symptomatic treatment. The patient received vitamin K, at this time I would recommend monitor the PT, INR closely. Resume home medications. Monitor blood sugars closely. Close follow-up with Ting Borjas in the outpatient setting. Further recommendations to follow. SONIAD
[2016-11-23 12:38] VITALS: BP 103/64; PULSE 86
--- NOTE | 2016-11-24 14:45 | DS ---
DATE OF ADMISSION: 11/22/2016 DATE OF DISCHARGE: 11/23/2016 FINAL DIAGNOSES: 1. Coumadin coagulopathy. 2. Increased WBC. 3. Increased hemoglobin. 4. Diabetes mellitus type 2. 5. History of recent left superficial femoral endarterectomy with bovine patch angioplasty. 6. Ischemic left leg secondary to hypercoagulable status and atherosclerotic arterial disease. DISCHARGE DISPOSITION: The patient will be discharged in a stable condition with guarded prognosis. HISTORY OF PRESENT ILLNESS: This 51-year-old woman with a past medical history of multiple medical problems being followed by Dr. Ting Borjas in the outpatient setting was admitted with Coumadin coagulopathy. INR is more than . After vitamin K improved to 1.1. On exam, vitals are stable. CARDIOVASCULAR: S1, S2. ABDOMEN: Soft. NERVOUS SYSTEM: No focal deficits. The patient is discharged in stable condition with guarded prognosis. DISCHARGE ADVICE: 1. Diet is cardiac. 2. Activities limited until follow-up. 3. Follow-up with Dr. Cunningham as mentioned. 4. Follow up with Dr. Borjas as recommended. MEDICATIONS: 1. Aspirin 81 mg p.o. daily. 2. Lipitor 10 mg daily. 3. Vitamin B12 1000 mcg p.o. daily. 4. Empagliflozin and linagliptin 1 tablet p.o. daily. 5. Stop Lovenox. 6. Fish oil 1 p.o. daily. 7. Diflucan 200 mg p.o. daily. 8. Antivert 25 mg b.i.d. p.r.n. 9. Vitamin B6 50 mg p.o. daily. 10. Coumadin 2.5 mg daily. 11. Ultram 100 mg p.o. q.i.d. Once again, the patient is being discharged in stable condition with guarded prognosis. MTDD
== END 2016-11-23 12:40 | disposition home or self-care (01) | DRG 918 ==
LOC: EC 11:40 → 6SEL 15:34
PROVIDERS: ADMIT Internal Medicine; ATTEND Internal Medicine
DX: T45.515A Adverse effect of anticoagulants, initial encounter (principal); E11.52 Type 2 diabetes mellitus with diabetic peripheral angiopathy with gangrene; F32.9 Major depressive disorder, single episode, unspecified; E86.0 Dehydration; F17.201 Nicotine dependence, unspecified, in remission; T40.4X5A Adverse effect of other synthetic narcotics, initial encounter; I25.10 Atherosclerotic heart disease of native coronary artery without angina pectoris; I99.8 Other disorder of circulatory system; R79.1 Abnormal coagulation profile; R11.2 Nausea with vomiting, unspecified; Z79.84 Long term (current) use of oral hypoglycemic drugs; Z79.01 Long term (current) use of anticoagulants; Z79.82 Long term (current) use of aspirin; Z79.899 Other long term (current) drug therapy; Z88.5 Allergy status to narcotic agent; Y92.009 Unspecified place in unspecified non-institutional (private) residence as the place of occurrence of the external cause
CPT/HCPCS: 36415; 80048; 85025; 85610; 99284

== ENCOUNTER → 2016-11-22 | Outpatient (CLI) | payer BC ==
[2016-11-22 10:26] LABS: Prothrombin Time >130.0 sec (9.0-12.0)
[2016-11-22 10:37] LABS: INR >10.0 (<1.1)
== END | disposition home or self-care (01) ==
LOC: LABWHC1 08:54
PROVIDERS: ATTEND Internal Medicine
DX: Z51.81 Encounter for therapeutic drug level monitoring (principal); Z79.01 Long term (current) use of anticoagulants
CPT/HCPCS: 36415; 85610

== ENCOUNTER → 2016-11-26 | Outpatient (CLI) | payer BC ==
[2016-11-26 14:11] LABS: INR 2.9 (<1.1); Prothrombin Time 27.8 sec (9.0-12.0)
== END | disposition home or self-care (01) ==
LOC: LABWHC1 13:47
PROVIDERS: ATTEND Surgery
DX: D68.59 Other primary thrombophilia (principal)
CPT/HCPCS: 36415; 85610

== ENCOUNTER → 2016-12-03 | Outpatient (CLI) | payer BC ==
[2016-12-03 10:48] LABS: INR 3.8 (<1.1); Prothrombin Time 36.7 sec (9.0-12.0)
== END | disposition home or self-care (01) ==
LOC: LABWHC1 10:09
PROVIDERS: ATTEND Surgery
DX: D68.59 Other primary thrombophilia (principal)
CPT/HCPCS: 36415; 85610

== ENCOUNTER → 2016-12-10 | Outpatient (CLI) | payer BC ==
[2016-12-10 10:53] LABS: INR 2.7 (<1.1); Prothrombin Time 26.3 sec (9.0-12.0)
== END | disposition home or self-care (01) ==
LOC: LABWHC1 10:16
PROVIDERS: ATTEND Surgery
DX: D68.59 Other primary thrombophilia (principal)
CPT/HCPCS: 36415; 85610

== ENCOUNTER → 2016-12-11 | Outpatient (CLI) | payer BC ==
[2016-12-12 06:29] LABS: Cardiolipin Ab IgG <9.0 GPL (<15); Cardiolipin Ab IgM 13.4 MPL (<12.5)
[2016-12-14 09:01] LABS: Mis test requested (Blood) Phosphatidylser.Abs
== END | disposition home or self-care (01) ==
LOC: LABWHC1 10:12
PROVIDERS: ATTEND Internal Medicine Hematology & Oncology
DX: E11.51 Type 2 diabetes mellitus with diabetic peripheral angiopathy without gangrene (principal)
CPT/HCPCS: 36415; 81240; 81241; 81291; 85300; 85613; 85730; 86147; 86148

== ENCOUNTER → 2016-12-17 | Outpatient (CLI) | payer BC ==
[2016-12-17 10:26] LABS: INR 1.9 (<1.1); Prothrombin Time 18.5 sec (9.0-12.0)
== END | disposition home or self-care (01) ==
LOC: LABWHC1 09:49
PROVIDERS: ATTEND Surgery
DX: D68.59 Other primary thrombophilia (principal)
CPT/HCPCS: 36415; 85610

== ENCOUNTER → 2016-12-25 | Outpatient (CLI) | payer BC ==
[2016-12-25 12:57] LABS: INR 3.1 (<1.1); Prothrombin Time 29.7 sec (9.0-12.0)
== END ==
LOC: LABWHC1 12:15
PROVIDERS: ATTEND Surgery
DX: D68.59 Other primary thrombophilia (principal)
CPT/HCPCS: 36415; 85610

== ENCOUNTER → 2017-01-29 | Outpatient (CLI) | payer BC ==
[2017-01-29 11:52] LABS: Blood Urea Nitrogen 15 mg/dL (7-17); Non-African American GFR(MDRD) >60 (>60 ml/min/1.73 sqM)
--- NOTE | 2017-01-29 12:53 | CT ---
EXAMINATION TYPE: CT chest w con DATE OF EXAM: 01/29/2017 12:41 PM COMPARISON: CT chest November 17, 2016 HISTORY: Patient has no complaints at time of study. Follow up study for known pulmonary nodule. CT DLP: 221.3 mGycm. Automated Exposure Control for Dose Reduction was Utilized. TECHNIQUE: CT scan of the thorax is performed following with IV Contrast, patient injected with 100 mL of Omnipaque 300. FINDINGS: LUNGS: 10 x 5 mm scarlike opacity laterally right upper lung on axial image 13 is unchanged from prio r study. There is 5 x 3 mm nodular opacity posteriorly left upper lung on axial image 10 felt stable. There are scattered small nodules all measuring under 4 mm in size throughout bilateral mid to lower lungs felt grossly stable from prior exam. There is interval resolution of bilateral small to tiny p leural effusions. No new concerning greater than 6 mm parenchymal nodule or mass is present. MEDIASTINUM: There are no greater than 1 cm hilar or mediastinal lymph nodes. No cardiomegaly or p ericardial effusion is seen. OTHER: No additional significant abnormality is seen. IMPRESSION: Overall stable findings, no new greater than 6 mm parenchymal nodule or mass is present.
== END | disposition home or self-care (01) ==
LOC: RADCTMAIN 11:23
PROVIDERS: ATTEND Internal Medicine Sleep Medicine
DX: R91.1 Solitary pulmonary nodule (principal)
CPT/HCPCS: 82565; 84520; 71260; 36415; Q9967

== ENCOUNTER → 2018-12-31 | Outpatient (CLI) | payer BC ==
--- NOTE | 2018-12-31 09:50 | MM ---
Reason for exam: screening (asymptomatic). Baseline mammogram. History: Patient is postmenopausal. Physical Findings: Nurse did not find any significant physical abnormalities on exam. MG Screening Mammo w CAD Bilateral CC and MLO view(s) were taken. The breast tissue is heterogeneously dense. This may lower the sensitivity of mammography. No suspicious calcifications are seen. There is no discrete abnormality. These results were verbally communicated with the patient and result sheet given to the patient on 12/31/18. ASSESSMENT: Negative, BI-RAD 1 RECOMMENDATION: Routine screening mammogram of both breasts in 1 year.
== END | disposition home or self-care (01) ==
LOC: RADMAMWWP 07:03
PROVIDERS: ATTEND Family Medicine
DX: Z12.31 Encounter for screening mammogram for malignant neoplasm of breast (principal)
CPT/HCPCS: 77067

== ENCOUNTER → 2022-08-21 | Outpatient (CLI) | payer BC ==
--- NOTE | 2022-08-22 18:01 | MM ---
Reason for Exam: Screening (asymptomatic). Last mammogram was performed 3 year(s) and 7 month(s) ago. Patient History: Menarche at age 11. First Full-Term at age 24. Postmenopausal. Risk Values: Leonila 5 year model risk: 1.2%. NCI Lifetime model risk: 7.9%. Prior Study Comparison: 12/31/2018 Bilateral Screening Mammogram, [facility]. Tissue Density: There are scattered fibroglandular densities. Findings: Analyzed By CAD. Pattern is stable. Benign calcifications present bilaterally. Chronic nodularity is within left breast. No suspicious groups of microcalcifications, spiculated or lobular masses, architectural distortion or other secondary signs of malignancy are mammographically apparent. Overall Assessment: Benign, BI-RAD 2 Management: Screening Mammogram of both breasts in 1 year. A negative mammogram report should not preclude additional follow up of suspicious palpable abnormalities. Patient should continue monthly self breast exam. A clinical breast exam by your physician is recommended on an annual basis and results should be correlated with mammographic findings. Electronically signed and approved by: Rogerio Mccallum D.O. Radiologis
== END | disposition home or self-care (01) ==
LOC: RADMAMWWP 14:59
PROVIDERS: ATTEND Family Medicine
DX: Z12.31 Encounter for screening mammogram for malignant neoplasm of breast (principal); Z78.0 Asymptomatic menopausal state
CPT/HCPCS: 77067

== ENCOUNTER → 2023-11-26 | Outpatient (CLI) | payer BC ==
--- NOTE | 2023-11-29 17:30 | MM ---
Reason for Exam: Screening (asymptomatic). Last mammogram was performed 1 year(s) and 3 month(s) ago. Patient History: Menarche at age 11. First Full-Term at age 24. Postmenopausal. Risk Values: Leonila 5 year model risk: 1.3%. NCI Lifetime model risk: 7.7%. Prior Study Comparison: 12/31/2018 Bilateral Screening Mammogram, [facility]. 08/21/2022 Bilateral MG screening mammo w CAD, [facility]. Tissue Density: The breasts are heterogeneously dense, which may obscure small masses. Findings: Analyzed By CAD. Pattern appears symmetrical and stable. Benign calcifications within the left breast. No significant interval change is evident. No suspicious groups of microcalcifications, spiculated or lobular masses, architectural distortion or other secondary signs of malignancy are mammographically apparent. Overall Assessment: Benign, BI-RAD 2 Management: Screening Mammogram of both breasts in 1 year. A negative mammogram report should not preclude additional follow up of suspicious palpable abnormalities. Patient should continue monthly self breast exam. A clinical breast exam by your physician is recommended on an annual basis and results should be correlated with mammographic findings. Electronically signed and approved by: Rogerio Mccallum D.O. Radiologis
== END | disposition home or self-care (01) ==
LOC: RADMAMWWP 08:58
PROVIDERS: ATTEND Family Medicine
DX: Z12.31 Encounter for screening mammogram for malignant neoplasm of breast (principal); Z78.0 Asymptomatic menopausal state
CPT/HCPCS: 77067